=== PATIENT | female | born 1945 | race African-American/Black ===

== ENCOUNTER → 2023-04-17 16:15 | Outpatient (BNVA) | payer MEDICARE, SELFPAY | PROVIDERS: PCP Internal Medicine; Visit Provider Internal Medicine Endocrinology, Diabetes & Metabolism | DX: E21.3 Hyperparathyroidism, unspecified (principal) | CPT/HCPCS: 99202 ==

== ENCOUNTER 2023-10-30 12:22 | Outpatient (REF) | payer MEDICARE, SELFPAY ==
[2023-10-30 14:36] LABS: Parathyroid Hormone Intact 156.3 pg/mL (8.7-77.1)
[2023-10-30 14:50] LABS: Vitamin D 25-OH Total 26.6 ng/mL (>30)
== END 2023-10-30 12:23 | disposition home or self-care (01) ==
LOC: HO.LAB 12:22
PROVIDERS: PCP Internal Medicine; Visit Provider Internal Medicine Endocrinology, Diabetes & Metabolism
DX: E21.3 Hyperparathyroidism, unspecified (principal)
CPT/HCPCS: 36415; 82306; 83970

== ENCOUNTER 2023-11-19 14:33 | Outpatient (AMB) | payer MEDICARE, SELFPAY ==
[2023-11-19 14:35] VITALS: BP 124/86; PULSE 78; BMI 36.7
--- NOTE | 2023-11-19 14:35 | MHC.OFFVIS ---
Intake Vital Signs 11/19/23 14:35 Height 5 ft 8.5 in Weight 244 lb 11.41 oz BMI 36.7 BP 124/86 Blood Pressure Location Lt brachial Position Sitting Pulse 78 Pulse Source Pulse Oximeter Intake Visit Reasons: Hypoparathyroidism-lvm Intake Note: Patient present today for Hypoparathyroidism follow up visit. Publications Inspector Required: No Accompanied by: Spouse Allergies shellfish derived Allergy (Unknown, Verified 11/19/23 14:42) Swelling Medication List - Last Reconciled 11/19/23 by Salomón Torre MD amlodipine 5 mg PO DAILY furosemide 20 mg PO DAILY lisinopril 40 mg PO DAILY metoprolol succinate ER 100 mg PO DAILY HPI HPI Comments History of Present Illness Details 78 YO F with PMHx primary hyperparathyroidism according to primary care for who is seen in consultation at the request of PCP for Hypercalcemia. First noted to have high calcium many yrs .Saw Radha Fam up to 3 yrs ago Not Currently using Calcium supplement . Takes 50,000 IU of Vitamin D daily. Currently Not using HCTZ. Kidney stones: No Osteoporosis: No History of [place] use: No Biotin use: No Family history of high calcium or kidney stones: No Renal imaging: No according to pt DXA: Labs: [facility] Medical History (Updated 04/17/23 @ 16:29 by Salomón Torre MD) Hyperparathyroidism Surgical History History of surgery History of left hip replacement History of right knee joint replacement History of total right hip replacement Family History Mother Diabetes Father Lung cancer Social History Alcohol intake: never Patient Tobacco Use Status: Never used Tobacco Physical Exam Vital Signs: Last Vital Signs Pulse 78 11/19/23 14:35 BP 124/86 11/19/23 14:35 BMI result Body Mass Index 36.7 Assessment & Plan Assessment & Plan (1) Hyperparathyroidism: Code(s): E21.3 - Hyperparathyroidism, unspecified Plan: This 78-year-old white female with a history of primary hyperparathyroidism. She also has concomitant vitamin-D deficiency and was taking 82861 units of ergocalciferol once a week Plan is to start 2000 IU of vitamin D3 per day per Will repeat request 24 hour urine for calcium and creatinine as well serum calcium and creatinine as well as 25 hydroxy vitamin-D in 2 months and DEXA bone density of hip, spine and forearm and renal ultrasound . Based on the above could consider either observing vs sending for parathyroidectomy Orders: Orders Creatinine 2 Months E21.3 - Hyperparathyroidism, unspecified Vitamin D 25-OH Total 2 Months E21.3 - Hyperparathyroidism, unspecified Medications: New cholecalciferol (vitamin D3) 50 mcg PO DAILY 30 caps 5RF Coding Level of Care Code Est Pt Level 3 (84037) Diagnoses Hyperparathyroidism E21.3
== END 2023-11-19 14:57 | disposition home or self-care (01) ==
PROVIDERS: PCP Internal Medicine; Visit Provider Internal Medicine Endocrinology, Diabetes & Metabolism
DX: E21.3 Hyperparathyroidism, unspecified (principal)
CPT/HCPCS: 99213

== ENCOUNTER → 2023-11-19 14:33 | Outpatient (BNVA) | payer MEDICARE, SELFPAY | PROVIDERS: PCP Internal Medicine; Visit Provider Internal Medicine Endocrinology, Diabetes & Metabolism | DX: E21.3 Hyperparathyroidism, unspecified (principal) | CPT/HCPCS: 99212 ==

== ENCOUNTER 2023-11-23 14:00 | Outpatient (REF) | payer MEDICARE, SELFPAY ==
--- NOTE | ~2023-11-23 | US_ITS ---
EXAMINATION: US RETROPERITONEAL LIMITED (RENAL ONLY) CLINICAL INFORMATION: Hyperparathyroidism, unspecified. Rule out nephrolithiasis. COMPARISON: None available. TECHNIQUE: Real-time imaging of the kidneys. FINDINGS: RIGHT KIDNEY: 9.9 x 4.6 x 5.0 cm (SAG x AP x TRV). The kidney is normal in size, contour, and echogenicity. Renal cortical thickness is normal. No renal calculi or hydronephrosis. Benign-appearing mid pole 1.4 cm cyst likely benign renal LEFT KIDNEY: 10.1 x 5.5 x 4.6 cm (SAG x AP x TRV). The kidney is normal in size, contour, and echogenicity. Renal cortical thickness is normal. No calculi or focal parenchymal lesions. No hydronephrosis. US/US renal BI IMPRESSION: No hydronephrosis or nephrolithiasis.
--- NOTE | ~2023-11-23 | MM_ITS ---
EXAMINATION: BONE DENSITOMETRY CLINICAL INDICATION: Hyperparathyroidism. COMPARISON: This is the patient's baseline examination. TECHNIQUE: Using a Dotspin DXA System (software version: 13.1) manufactured by [employer], dual-energy x-ray absorptiometry was performed of the lumbar spine and left forearm radius 33%. Patient with bilateral hip replacements. The images are of good technical quality. Summary results are attached. FINDINGS: AP SPINE L1-L3 (excluding L4): The data of L1-L4 has been changed to exclude the L4 vertebral body, because degenerative sclerosis at this level may cause overestimation of lumbar spine density. BMD 1.155 g/cm2, Z-score -0.2, T-score -0.1, normal. LEFT FOREARM RADIUS 33%: BMD 0.706 g/cm2, Z-score -0.3, T-score -1.9, osteopenia. IDENTIFIED RISK FACTORS: Menopause, hyperparathyroid, secondary osteoporosis. HISTORY OF FRACTURE: None listed. MEDICATIONS: None listed. MM/XR DEXA appendicular skeleton IMPRESSION: 1. DIAGNOSIS: Osteopenia based on the lowest T-score value of -1.9 in the forearm radius 33% applying World Health Organization criteria. 2. 10-YEAR FRACTURE RISK PREDICTION, FRAX: Not performed in this patient without a femoral neck BMD measurement. 3. Treatment Recommendations: NOF guidelines recommend consideration for treatment in postmenopausal women and men age 50 and older presenting with the following: -A hip or vertebral (clinical or morphometric) fracture. -T-score less than or equal to -2.5 at the femoral neck or spine after appropriate evaluation to exclude secondary causes. -Low bone mass at the hip or spine and a 10-year fracture probability by FRAX of greater than or equal to 3% for hip fracture or greater than or equal to 20% for major osteoporotic fracture based on the [place] adapted WHO algorithm. 4. Other Recommendations: All treatment decisions require clinical judgment and consideration of individual patient factors, including patient preferences, comorbidities, previous drug use, risk factors not captured in the FRAX model (e.g. frailty, falls, vitamin D deficiency, increased bone turnover, interval significant decline in bone density) and possible under or overestimation of fracture risk by FRAX. Additional medical evaluation for secondary cause of low bone mineral density may be appropriate. FUTURE SCAN RECOMMENDATION: People with diagnosed cases of osteoporosis or at high risk for fracture should have regular bone mineral density tests. For patients eligible for Medicare, routine testing is allowed once every 2 years. The testing frequency can be increased to one year for patients who have rapidly progressing disease, those who are receiving or discontinuing medical therapy to restore bone mass, or have additional risk factors.
== END 2023-11-23 14:01 | disposition home or self-care (01) ==
LOC: HO.MAMMO 14:00
PROVIDERS: PCP Internal Medicine; Visit Provider Internal Medicine Endocrinology, Diabetes & Metabolism
DX: E21.3 Hyperparathyroidism, unspecified (principal); M81.8 Other osteoporosis without current pathological fracture; Z78.0 Asymptomatic menopausal state
CPT/HCPCS: 76775; 77081

== ENCOUNTER 2024-02-25 11:56 | Outpatient (REF) | payer MEDICARE, SELFPAY ==
[2024-02-25 15:02] LABS: Estimated Glomerular Filt Rate 55
[2024-02-25 15:19] LABS: Vitamin D 25-OH Total 41.7 ng/mL (>30)
== END 2024-02-25 11:57 | disposition home or self-care (01) ==
LOC: HO.LAB 11:56
PROVIDERS: PCP Internal Medicine; Visit Provider Internal Medicine Endocrinology, Diabetes & Metabolism
DX: E21.3 Hyperparathyroidism, unspecified (principal)
CPT/HCPCS: 36415; 82306; 82565

== ENCOUNTER 2024-02-27 14:11 | Outpatient (REF) | payer MEDICARE, SELFPAY ==
[2024-02-27 21:56] LABS: Total Volume 24 Hour Urine 1200 mL
[2024-02-27 22:05] LABS: Creatinine, 24Hr Urine 1.5 G/Day (1.0-2.0); Creatinine, mg/dL 122.02
[2024-02-28 18:19] LABS: Calcium, 24 Hr Urine 239 mg/24 h; Calcium/Creatinine Ratio 155 mg/g creat (30-275); Creatinine 24Hr Urine 1.54 g/24 h (0.50-2.15)
== END 2024-02-27 14:12 | disposition home or self-care (01) ==
LOC: HO.LNP 14:11
PROVIDERS: Visit Provider Internal Medicine Endocrinology, Diabetes & Metabolism
DX: E21.3 Hyperparathyroidism, unspecified (principal)
CPT/HCPCS: 82340; 82570

== ENCOUNTER 2024-03-19 14:54 | Outpatient (AMB) | payer MEDICARE, SELFPAY ==
--- NOTE | 2024-03-19 14:56 | MHC.OFFVIS ---
Vital Signs 03/19/24 14:58 Height 5 ft 8.5 in Weight 241 lb 13.553 oz BMI 36.2 BP 156/90 H Blood Pressure Location Lt brachial Position Sitting Pulse 77 Pulse Source Pulse Oximeter Intake Visit Reasons: hyperparathyroidism Intake Note: Patient present today for Hyperparathyroidism follow up visit. Riffler Tender Required: No Accompanied by: Self / Same As Patient Allergies shellfish derived Allergy (Unknown, Verified 03/19/24 15:02) Swelling HPI Comments Details: 78 YO F with PMHx primary hyperparathyroidism according to primary care for who is seen in consultation at the request of PCP for Hypercalcemia. First noted to have high calcium many yrs .Saw Radha Fam up to 3 yrs ago Not Currently using Calcium supplement . Takes 50,000 IU of Vitamin D daily. Currently Not using HCTZ. Kidney stones: No Osteoporosis: No History of [place] use: No Biotin use: No Family history of high calcium or kidney stones: No Renal imaging: No according to pt DXA: Labs: No kidney PFSH Medical History (Updated 04/17/23 @ 16:29 by Salomón Torre MD) Hyperparathyroidism Surgical History History of surgery History of left hip replacement History of right knee joint replacement History of total right hip replacement Family History Mother Diabetes Father Lung cancer Social History Alcohol intake: never Patient Tobacco Use Status: Never used Tobacco Physical Exam Vital Signs: Last Vital Signs Pulse 77 03/19/24 14:58 BP 156/90 H 03/19/24 14:58 BMI result Body Mass Index 36.2 Assessment & Plan Assessment & Plan (1) Hyperparathyroidism: Code(s): E21.3 - Hyperparathyroidism, unspecified Category: Medical Plan: This 78-year-old white female with a history of primary hyperparathyroidism. She also has concomitant vitamin-D deficiency and was taking 2000 IU/day of vitamin D3 . DEXA bone density did not show any evidence of osteoporosis and renal ultrasound did not show any evidence of kidney stones. Therefore there is no clear indication for parathyroid exploration Plan is to repeat calcium, albumin, PTH, 25 hydroxy vitamin-D. Most likely, we will continue to observe patient has no clear indication for parathyroid surgery Orders: Orders Vitamin D 25-OH Total Today E21.3 - Hyperparathyroidism, unspecified Parathyroid Hormone Intact Today E21.3 - Hyperparathyroidism, unspecified Calcium Today E21.3 - Hyperparathyroidism, unspecified Albumin Level Today E21.3 - Hyperparathyroidism, unspecified Coding Level of Care Code Est Pt Level 3 (82502) Diagnoses Hyperparathyroidism E21.3
[2024-03-19 14:58] VITALS: BP 156/90; PULSE 77; BMI 36.2
== END 2024-03-19 15:55 | disposition home or self-care (01) ==
PROVIDERS: PCP Internal Medicine; Visit Provider Internal Medicine Endocrinology, Diabetes & Metabolism
DX: E21.3 Hyperparathyroidism, unspecified (principal)
CPT/HCPCS: 99213

== ENCOUNTER → 2024-03-19 14:54 | Outpatient (BNVA) | payer MEDICARE, SELFPAY | PROVIDERS: PCP Internal Medicine; Visit Provider Internal Medicine Endocrinology, Diabetes & Metabolism | DX: E21.3 Hyperparathyroidism, unspecified (principal) | CPT/HCPCS: 99212 ==

== ENCOUNTER 2024-04-22 09:50 | Outpatient (REF) | payer MEDICARE, SELFPAY ==
--- NOTE | ~2024-04-22 | MM_ITS ---
EXAMINATION: MM SCREENING DIGITAL BREAST TOMOSYNTHESIS, BILATERAL CLINICAL INFORMATION: Screening. Asymptomatic. COMPARISON: Mammography: There are no prior mammograms for comparison. TECHNIQUE: Digital breast tomosynthesis is performed in both the craniocaudal and mediolateral oblique views along with computer-aided detection (CAD). Synthesized 2D images are generated from the tomosynthesis. FINDINGS: There are scattered areas of fibroglandular density (ACR BI-RADS breast composition Category b). There are no significant masses, abnormal calcifications, or other abnormalities. Scattered, coarse, benign calcifications are present in each breast. MM/MM tomosynthesis screening BI IMPRESSION: No mammographic evidence of malignancy. ASSESSMENT: BI-RADS BI-RADS 2 - Benign Findings RECOMMENDATION: Routine annual mammography screening. 1 year F/U This examination should not preclude the clinical evaluation of a suspicious palpable abnormality. This patient's information was entered into a reminder system with a target due date for their next mammogram.
== END 2024-04-22 09:51 | disposition home or self-care (01) ==
LOC: HO.MAMMO 09:50
PROVIDERS: PCP Internal Medicine; Visit Provider Internal Medicine
DX: Z12.31 Encounter for screening mammogram for malignant neoplasm of breast (principal)
CPT/HCPCS: 77063; 77067

== ENCOUNTER → 2024-04-22 12:30 | Outpatient (BNV) | payer MEDICARE, SELFPAY | PROVIDERS: PCP Internal Medicine; Visit Provider Radiology Diagnostic Radiology | DX: Z12.31 Encounter for screening mammogram for malignant neoplasm of breast (principal) | CPT/HCPCS: 77063; 77067 ==

== ENCOUNTER 2025-04-01 11:33 | Outpatient (AMB) | payer MEDICARE, SELFPAY ==
--- NOTE | 2025-04-01 11:38 | MHC.OFFVIS ---
Vital Signs 04/01/25 11:47 Height 5 ft 8 in Weight 232 lb BMI 35.3 BP 160/80 H Blood Pressure Location Rt brachial Position Sitting Pulse 105 H Intake Visit Reasons: Gallbladder problems Intake Note: Patient referred by pcp Dr. Mixon for Cholelithiasis. Patient c/o: oan and off RUQ pain. Reports normal BM. Denies constipation, diarrhea. Factory Helper Required: No Accompanied by: Self / Same As Patient Allergies shellfish derived Allergy (Unknown, Verified 04/01/25 11:44) Swelling Medication List - Last Reconciled 04/01/25 by Zhen Wilcox MD amlodipine 5 mg PO DAILY aspirin 81 mg PO DAILY cholecalciferol (vitamin D3) 50 mcg PO DAILY lisinopril 40 mg PO DAILY metoprolol succinate ER 100 mg PO DAILY HPI HPI Gallbladder problems: Details: [age] year old female referred for question of gallbladder problems. She says that she went to the ER in [facility] last January,. She says she was having pain on the right flank area that time. She says she was told that she may have gallbladder issues although she does not recall having any imaging workup. She was therefore recommended to see a surgeon She admits to occasional pain in the right flank area. She denies any GI complaints . She has good oral intake. [facility] Medical History Right flank pain Hyperparathyroidism Surgical History History of surgery History of left hip replacement History of right knee joint replacement History of total right hip replacement Family History Mother Diabetes Father Lung cancer Social History Alcohol intake: never Patient Tobacco Use Status: Never used Tobacco Review of Systems Const Denies chills and Denies fever(s) Card Denies chest pain, Denies dyspnea and Reports dyspnea on exertion Resp Denies cough, Denies dyspnea and Reports dyspnea on exertion GI Denies hematochezia and Denies change in bowel habits Denies hematuria Musc Denies back pain and Denies limited range of motion Neuro Denies focal weakness and Denies convulsions Psych Denies depression and Denies mood swings Physical Exam Vital Signs: Last Vital Signs Pulse 105 H 04/01/25 11:47 BP 160/80 H 04/01/25 11:47 BMI result Body Mass Index 35.3 Const Other: Appears morbidly obese General: comfortable and no acute distress Resp Effort & Inspection: normal respiratory effort Cardio Rate: regular rate GI Other: Obese abdomen Palpation (GI): Soft to palpation, not firm and nontender Assessment & Plan Assessment & Plan (1) Right flank pain: Code(s): R10.9 - Unspecified abdominal pain Category: Medical Plan: She was told she may have gallbladder disease. I do not see any imaging studies here in [facility]. Says she does not recall having any imaging studies while she was in at [facility]. I am going to order for a CAT scan of the abdomen with IV contrast. I told her that I will see her again in the office after her CAT scan to review the findings. She otherwise has a very benign exam. She says she understands the plan well and is comfortable with this Orders: Orders Blood Urea Nitrogen Today R10.9 - Unspecified abdominal pain Creatinine Today R10.9 - Unspecified abdominal pain CT abdomen pelvis w IV con Today R10.9 - Unspecified abdominal pain Coding Level of Care Code New Pt Level 3 (64078) Diagnoses Right flank pain R10.9
[2025-04-01 11:47] VITALS: BP 160/80; PULSE 105; BMI 35.3
--- OUTSIDE RECORDS SUMMARY | 2025-04-01 13:18 | XMS_ITS | Patient Health Record ---
Author Organization [facility] Address [address] [place] [address] Care Team Providers Care Accounting Auditor Name Role Phone Oral Gisselle Primary Care Provider Favian Sanchez M.D, M.P.H, Nunu Unavailable Allergies No Known Allergies Results Component Value Reference Range Notes Metanephrines, Pheochromocyt Reviewed date:07/16/2024 02:00:41 PM Interpretation: Performing Lab: Notes/Report: VMA, Random Urine Reviewed date:07/16/2024 02:00:29 PM Interpretation: Performing Lab: Notes/Report: VANILLYLMANDELIC ACID, RANDO M URINE (Not yet reviewed by provider) Interpretation: Performing Lab:EZ, [facility],[address] [facility] [id number] Hailee Khan MD,PhD,TATYANA Notes/Report: VANILLYLMANDELIC ACID, RANDO M URINE 2.3 1.1-4.1 mg/g creat This test was developed and its analytical performance characteristics have been determined by [facility]. It has not been cleared or approved by FDA. This assay has been validated pursuant to the CLIA regulations and is used for clinical purposes. CREATININE, RANDOM URINE 61 20-275 mg/dL METANEPHRINES, FRACT, FREE, LC/MS/MS, PLASMA (Not yet reviewed by provider) Interpretation: Performing Lab:KELLY, [facility] [id number] Hayden Scott, [id number] Milton Covington M.D.,PhD Notes/Report: METANEPHRINE, FREE 64 <=57 pg/mL This test was developed and its analytical performance characteristics have been determined by [email or web address] [place], [place]. It has not been cleared or approved by the U.S. Food and Drug Administration. This assay has been validated pursuant to the CLIA regulations and is used for clinical purposes. NORMETANEPHRINE, FREE 48 <=148 pg/mL This test was developed and its analytical performance characteristics have been determined by [email or web address] [place], [place]. It has not been cleared or approved by the U.S. Food and Drug Administration. This assay has been validated pursuant to the CLIA regulations and is used for clinical purposes. TOTAL, FREE (MN+NMN) 112 <=205 pg/mL Elevations >1- 4-fold upper reference range: significant but not diagnostic, may be due to medications or stress. Suggest running 24 hr urine fractionated metanephrines and/or serum Chromagranin A for confirmation. Reference: (1)Brandy Adorno et al, Plasma Chromogranin A or Urine Fractionated Metanephrines Follow-Up Testing Improves the Diagnostic Accuracy of Plasma Fractionated Metanephrines for Pheochromocytoma. The Journal of Clinical Endocrinology # Metabolism 93(1), 91-95, 2008. This test was developed and its analytical performance characteristics have been determined by [email or web address] [place], [place]. It has not been cleared or approved by the U.S. Food and Drug Administration. This assay has been validated pursuant to the CLIA regulations and is used for clinical purposes. For additional information, please refer to http://education.[employer].com/faq/MetFractFr ee (This link is being provided for informational/educatio informational/educational purposes only.) Elevations >4-fold upper reference range: strongly suggestive of a pheochromocytoma(1). COPY(IES) SENT TO: (Not yet reviewed by provider) Interpretation: Performing Lab: Notes/Report: COPY(IES) SENT TO: [address] [place] [address] HEREDITARY ENDOCRINE CANCER PANEL (Not yet reviewed by provider) Interpretation: Performing Lab:EZ, [email or web address],[address] [address], [place] Hailee Khan MD,PhD,TATYANA Notes/Report: RESULT NEGATIVE NO CLINICALLY SIGNIFICANT VARIANTS IDENTIFIED Comprehensive sequence analysis of the coding regions and flanking sequence of the gene(s) tested (see Methods and Limitations section) was negative for clinically significant variants. Inherent to the assay methodology, not all gross gene rearrangements or variants affecting gene expression or RNA splicing will be detected. This negative result does not rule out clinically significant variants in other genes associated with hereditary susceptibility to cancer, nor does it address risk for other hereditary conditions. Residual risk after this negative test result is influenced by the indication for testing. Cancer screening and prevention efforts should be guided by personal and family history. In some circumstances, additional genetic testing may be appropriate in addition to new testing options relevant for this individual as they become available in the future. Genetic counseling is recommended for any individual undergoing genetic testing. If this individual has one or more relatives who tested positive for a pathogenic or likely pathogenic variant in any of the tested genes, it is strongly recommended that the genetic test report from at least one such relative be provided to [email or web address]. GENE LIST SEE NOTE In total, 12 genes were analyzed as part of this panel: FH, MAX, MEN1, NF1, RET, SDHA, SDHAF2, SDHB, SDHC, SDHD, [id number], and VHL. CLINICAL INTERPRETATION NEGATIVE NO CLINICALLY SIGNIFICANT VARIANTS IDENTIFIED Comprehensive sequence analysis of the coding regions and flanking sequence of the gene(s) tested (see Methods and Limitations section) was negative for clinically significant variants. Inherent to the assay methodology, not all gross gene rearrangements or variants affecting gene expression or RNA splicing will be detected. This negative result does not rule out clinically significant variants in other genes associated with hereditary susceptibility to cancer, nor does it address risk for other hereditary conditions. Residual risk after this negative test result is influenced by the indication for testing. Cancer screening and prevention efforts should be guided by personal and family history. In some circumstances, additional genetic testing may be appropriate in addition to new testing options relevant for this individual as they become available in the future. Genetic counseling is recommended for any individual undergoing genetic testing. If this individual has one or more relatives who tested positive for a pathogenic or likely pathogenic variant in any of the tested genes, it is strongly recommended that the genetic test report from at least one such relative be provided to [email or web address]. REVIEWER SEE NOTE Laboratory testing supervised and results monitored by Cole Bowman, Ph.D., FACMG, HCLD, CGMB. RESOURCES SEE NOTE Visit [employer] for physician information, patient materials, FAQs, and testing resources. Call 8-503-YHSA-INFO ( ) for genetic counseling consultations, pre-authorization services, and help finding patient genetic counseling services. Benign and likely benign variants with no known clinical significance are reported only by request. If a variant is reclassified with clinical implications, [email or web address] will endeavor to contact the ordering provider. Providers may contact [employer] [facility] at [phone] ( ) for assistance with result interpretation, questions about variant classification, or to discuss additional testing. The classification and interpretation of the variant(s) identified reflect the current state of [email or web address]' understanding at the time of this report. Variant classification and interpretation are subject to professional judgment, and may change for a variety of reasons, including but not limited to, updates in classification guidelines and availability of additional scientific and clinical information. This test result should be used in conjunction with the health care provider's clinical evaluation. Inquiry regarding potential changes to the classification of the variant is strongly recommended prior to making any future clinical decision. For questions regarding variant classification updates, please call [email or web address] at [phone] to speak to a genetic counselor or clinical laboratory technician, or visit [email or web address]. For patients who are interested in sharing de-identified genetic and health information to improve understanding of genetics and health, please visit [email or web address]. GenomeConnect is a third constitution party online registry designed by the [employer] ([employer]) and is not affiliated with [email or web address] in any way. This test was developed and its analytical performance characteristics have been determined by [email or web address]. It has not been cleared or approved by FDA. This assay has been validated pursuant to the CLIA regulations and is used for clinical purposes. METHODS AND LIMITATIONS SEE NOTE Methods: In this assay, enzymatically sheared DNA fragments representing the entire coding region and the splice junction sites of the interrogated genes are selectively enriched through exon capture using DNA baits, and then subjected to nucleotide sequence analysis on a massively parallel sequencing platform. Select exons of SDHA are enriched by long-range PCR (LR-PCR) amplification prior to sequencing, to avoid interference from pseudogenes. All genes are examined for single nucleotide variants (SNVs), insertions and deletions (InDels), and copy number variants (CNVs) involving deletions and/or duplications of one or more exons, including those that affect the entire genes. CNVs are assessed by bioinformatic analysis of sequencing reads and, when indicated, confirmed by an orthogonal method. This panel analyzes 12 genes including FH, MAX, MEN1, NF1, RET, SDHA, SDHAF2, SDHB, SDHC, SDHD, FECH718, and VHL. The following NCBI reference transcript sequences were utilized for analysis: FH (NM 057495.3), MAX (NM 377701.4), MEN1 (NM 721332.2), NF1 (NM 633998.3), RET (NM 712078.4), SDHA (NM 021586.3), SDHAF2 (NM 741382.2), SDHB (NM 889813.2), SDHC (NM 067942.3), SDHD (NM 913697.3), XAZQ526 (NM 329671.3), VHL (NM 704481.3). Reference genome: hg19 (build37). Limitations: This assay cannot detect variants affecting unexamined gene regions (e.g. deep intronic), nor variants in other unlisted genes. In addition, the effect of rare or novel variants on mRNA splicing, protein synthesis, and/or protein function may remain unclear. Variants due to mosaicism, somatic variants from pre-malignant or malignant cells, false positive, or false negative results may rarely occur. While this assay detects copy number variants (CNVs) spanning a region of interest (KATIE) 100bp or more in size with a high level of sensitivity, CNV detection in smaller ROIs, which are clinically rare, is reduced. Results should be interpreted in the context of clinical findings, relevant history, and other laboratory data. This assay does not analyze all genes associated with hereditary cancer. In some situations, additional genetic testing may be appropriate. ADDITIONAL INFORMATION SEE NOTE Visit [employer] for physician information, patient materials, FAQs, and testing resources. Call 2-210-FYRF-INFO ( ) for genetic counseling consultations, pre-authorization services, and help finding patient genetic counseling services. Benign and likely benign variants with no known clinical significance are reported only by request. If a variant is reclassified with clinical implications, [email or web address] will endeavor to contact the ordering provider. Providers may contact [employer] [facility] at [phone] ( ) for assistance with result interpretation, questions about variant classification, or to discuss additional testing. The classification and interpretation of the variant(s) identified reflect the current state of [email or web address]' understanding at the time of this report. Variant classification and interpretation are subject to professional judgment, and may change for a variety of reasons, including but not limited to, updates in classification guidelines and availability of additional scientific and clinical information. This test result should be used in conjunction with the health care provider's clinical evaluation. Inquiry regarding potential changes to the classification of the variant is strongly recommended prior to making any future clinical decision. For questions regarding variant classification updates, please call [email or web address] at [phone]) to speak to a genetic counselor or clinical laboratory technician, or visit [email or web address]. For patients who are interested in sharing de-identified genetic and health information to improve understanding of genetics and health, please visit [email or web address]. GenomeConnect is a third constitution party online registry designed by the Clinical Genome [employer] ([employer]) and is not affiliated with [email or web address] in any way. This test was developed and its analytical performance characteristics have been determined by [email or web address]. It has not been cleared or approved by FDA. This assay has been validated pursuant to the CLIA regulations and is used for clinical purposes. COPY(IES) SENT TO: (Not yet reviewed by provider) Interpretation: Performing Lab: Notes/Report: FASTING:NO FASTING: NO COPY(IES) SENT TO: [address] [address] BUN/CREATININE RATIO (Not ye t reviewed by provider) Interpretation: Performing Lab:NL2, [email or web address] [address] [place], [place] [id number] Richy Aguilar Notes/Report: FASTING:NO FASTING: NO UREA NITROGEN (BUN) 17 7-25 mg/dL CREATININE 1.19 0.60-1.00 mg/dL EGFR 47 > OR = 60 mL/min/1.73m2 BUN/CREATININE RATIO 14 6-22 (calc) CT Angiogram Neck with & wit hout contrast Reviewed date:06/05/2024 08:24:40 AM Interpretation: Performing Lab: Notes/Report: Reason For Referral Reason [id number] - Surgery Auth Referral Organization [facility] Referring Provider First Name Nunu Referring Provider Last Name Daniel Referring Provider Speciality Otology, L aryngology, Rhinology Referred Organization [facility] Referred Provider Nunu Sanchez Referred Address [address] [facility] [facility],[place], [place],[address], Referred Provider Specialty Otology, Lar yngology, Rhinology Referral Priority Routine Medications Medication SIG (Take, Route, Frequency, Duration) Notes Start Date End Date Status Vitamin D3 50 MCG (1999) TAKE 1 CAPSU LE BY MOUTH ONCE DAILY Oral for 90 Days Active Metoprolol Succinate ER 50 MG Oral for 30 Days Active Lisinopril 20 MG 1 tablet Orally Twic e a day for 30 days Active Metoprolol Succinate ER 100 MG Oral for 90 Days Active amLODIPine Besylate 5 MG Oral for 90 Days Active Folic Acid 1 MG 1 tablet Orally Once a day Active Aspirin 81 81 MG 1 tablet Orally Once a day Active Clopidogrel Bisulfate 75 MG Oral for 30 Days Active Atorvastatin Calcium 40 MG Oral for 30 Days Active Social History Tobacco Use: Social History Observation Description Date Details (start date - stop date) Never Smoker NA - NA Smoking: Question Answer Notes Are you a : Never Smoker Alcohol Screen Question Answer Notes Did you have a drink containing alcohol in the p ast year? No Vital Signs Blood pressure diastolic 80 mm Hg 08/21/2024 Height 70 in 11/20/2024 Blood pressure systolic 120 mm Hg 08/21/2024 Weight 220 lbs 11/20/2024 BMI 31.56 kg/m2 11/20/2024 Encounters Encounter Location Date Provider Diagnosis [facility] [address] [facility] [address] [place] [address] 06/02/2024 Nunu Sanchez 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 [facility] [address] [facility] [address] [place] [address] 06/12/2024 Nunu Du 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 [facility] [address] [place] [address] 08/06/2024 Nunu Du 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 [facility] [address] [place] [phone] 08/21/2024 Nunu Du 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 [facility] [address] [place] [address] 11/20/2024 Nunu Du 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 [facility] [address] [place] [address] 06/02/2024 Nunu Du 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 [facility] [address] [place] [address] 06/06/2024 Nunu Du [facility] [address] [place] [phone] 07/03/2024 Nunu Du [facility] [address] [place] [phone] 07/29/2024 Nunu Du Assessments Encounter Date Diagnosis (ICD Code) Assessment Notes Treatment Notes Treatment Clinical Notes Section Notes 06/02/2024 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 Had CTA head but no other imaging. Will try to obtain CTA head report from [facility]. She will also need CTA neck if there is a question of a carotid body tumor. Will order, see after. 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 Recommend excision. R/A/B discussed extensively. Will ask vascular surgeon to be available and have them review imaging to see if they want LE duplex pre-op. In addition, will check plasma metanephrines and urine VMA to r/o pheochromocytoma. Patient in agreement with proceeding. Will tentatively schedule. 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 path shows paraganglioma, completely excised. Doing well. Can see me prn. Plan Of Treatment Pending Test Test Name Order Date BUN/CREATININE RATIO 06/02/2024 VANILLYLMANDELIC ACID, RANDOM URINE 05/23 METANEPHRINES, FRACT, FREE, LC/MS/MS, PL ASMA 06/12/2024 COPY(IES) SENT TO: 06/02/2024 COPY(IES) SENT TO: 06/12/2024 HEREDITARY ENDOCRINE CANCER PANEL 2023 Insurance Providers Payer Name Payer Address Payer Phone Subscriber Number Group Number Insured Name Patient Relationship to Insured Coverage Start Date Coverage End Date [facility] 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
== END 2025-04-01 11:55 | disposition home or self-care (01) ==
LOC: HO.HGS 11:34
PROVIDERS: PCP Internal Medicine; Visit Provider Surgery
DX: R10.9 Unspecified abdominal pain (principal)
CPT/HCPCS: 99203

== ENCOUNTER 2025-04-01 11:33 | Outpatient (REF) | payer MEDICARE, SELFPAY ==
[2025-04-01 14:34] LABS: Blood Urea Nitrogen 15 mg/dL (9-16); Estimated Glomerular Filt Rate 53
== END 2025-04-01 11:34 | disposition home or self-care (01) ==
LOC: HO.LAB 11:33
PROVIDERS: PCP Internal Medicine; Visit Provider Surgery
DX: R10.9 Unspecified abdominal pain (principal)
CPT/HCPCS: 36415; 82565; 84520; 99202

== ENCOUNTER 2025-04-28 10:22 | Outpatient (REF) | payer MEDICARE, SELFPAY ==
--- OUTSIDE RECORDS SUMMARY | 2025-04-28 11:14 | XMS_ITS | Clinical Summary ---
Author Organization [facility] [address] [facility] Address [address] [place] [address] Phone Care Team Providers Care Freight Inspector Name Role Phone Gisselle Mixon MD Primary Care Provider [phone] Allergies Active Allergy Reactions Criticality Noted Date Comments Shellfish Containing Products 2024 Medications lisinopril (PRINIVIL,ZESTR IL) 40 mg tablet Take 1 tablet (40 mg total) by mouth. Active metoprolol ospina-hydrochlorot hiaz 100-12.5 mg tablet extended release 24 hr Take by mouth. A ctive aspirin 81 mg EC tablet Take 1 tablet (81 mg total) by mouth 1 (one) time each day. Active atorvastatin (LIPITOR) 40 mg tablet Take 1 tablet (40 mg total) by mouth at bedtime. Active doxycycline (MONODOX) 100 mg capsule Take 1 capsule (100 mg total) by mouth 2 (two) times a day. Take with at least 8 ounces (large glass) of water, do not lie down for 30 minutes after. Administer 2 hours before or after multivitamins, antacids, or other products containing polyvalent cations (i.e., calcium, iron, magnesium, selenium, zinc). Active amLODIPine (NORVASC) 5 mg tablet 0 Refills, Maintenance, 05/18/24 14:21:00 EDT, Partial fill upon patient request if the prescription is for a schedule II opioid drug. 4 Active folic acid (FOLVITE) 1 mg tablet Take 1 tablet (1 mg total) by mouth. 4 Active metoprolol tartrate (LOPRESSOR) 50 mg tablet Take 1 tablet (50 mg total) by mouth. 3 Active cholecalciferol (VITAMIN D-3) 50 mcg (2,000 unit) capsule Take 1 capsule (2,000 Units total) by mouth 1 (one) time each day. Active Active Problems Problem Noted Date Diagnosed Date Class 1 obesity 02/26/2025 Hyperparathyroidism ([facility] V24) 02/26/2025 Hypertension 02/26/2025 Cervical cord compression wi th myelopathy ([facility] V24, [facility] V28) 05/18/2022 Overview (02/20/2025): Last Assessment & Plan: Ms. Flores is here for 1 year follow-up since her C3-4 and C6-7 decompressive laminectomy on 06/08/2022. She feels well, denies neck pain and states that her hands are much better, she has not dropped anything from her hands since surgery. She still feels a little off balance and uses her rollator. She denies any falls. On exam, she has a well-healed posterior cervical incision without tenderness or swelling. Cervical rotation is between 60 and 75 degrees bilaterally, strength is 5/5 to confrontational testing. She is able to rise from the chair pushing up on the armrests, gait is with short spastic steps. She appears safe with her rollator. Review of the AP/lateral and flexion/extension x-rays from today show the laminectomy defects without instability. Ms. Flores has made improvements since her surgery to treat cervical myelopathy. However, her she continues to have a spastic gait which may not improve further. She attended postop PT and has the home exercise program though she is not consistent with it. I encouraged her to restart that but let her know that the vast majority of improvements occur within the first year of surgery so she may be at medical endpoint. She should continue using her rollator. CVA (cerebral vascular accident) ([facility] V24, [facility] V28) 04/2024 Encounters Date Type Department Care Team Description 03/02/2025 10:10 AM EDT Consult Gastroenterology - [address] [facility] [address] [place] [address] Florence Iverson PA Colon cancer screening (Primary Dx); Right upper quadrant abdominal pain 03/02/2025 Telephone Gastroenterology - [place] [address] [facility] [address] [facility] [address] [place] [address] Aster Jean MA 02/04/2025 Telephone Gastroenterology - [address] [facility] [address] [facility] [address] [place] [address] Abhinav Marks MD 01/30/2025 Telephone Gastroenterology - [address] [facility] 299 [facility] [address] [place] [address] Abhinav Marks MD information needed from Last 3 Months Surgical History Surgery Date Site/Laterality Comments OTHER SURGICAL HISTORY 06/08/2022 PROCEDURE: ND LAMINECTOMY W/O FFD > 2 VERT SEG CERVICAL; COMMENT: C3-4, C6-7 laminectomy, Dr. 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 ([facility] V24, [facility] V28) Artificial knee joint present, right Presence of artificial hip joint, right Presence of left artificial hip joint Chronic renal disease Osteoarthritis Family History Medical History Relation Name Comments Colon polyps Sister Colon cancer Neg Hx Relation Name Status Comments Sister Social History Tobacco Use Types Packs/Day Years Used Date Smoking Tobacco: Never Smokeless Tobacco: Never Tobacco Cessation:Counseling Given: Not Answered Alcohol Use Standard Drinks/Week Comments Not Currently 0 (1 standard drink = 0.6 oz pur e alcohol) Comments Unknown Sex and Gender Information Value Date Recorded Sex Assigned at Not on file Legal Sex Female 6:48 PM EST Gender Identity Not on file Sexual Orientation Not on file Obstetrics History Last Filed Vital Signs Vital Sign Reading Time Taken Comments Blood Pressure - - Pulse - - Temperature - - Respiratory Rate - - Oxygen Saturation - - Inhaled Oxygen Concentration - - Weight 108 kg (237 lb) 03/02/2025 10:05 AM EDT Height 172.7 cm (5' 8 ) 03/02/2025 10:05 AM EDT Body Mass Index 36.04 03/02/2025 10:05 AM EDT Plan of Treatment Upcoming Encounters Date Type Department Care Team (Late st Contact Info) Description 05/18/2025 9:00 AM EDT Appointment [facility] [address] [place] [address] Abhinav Marks MD [address] [facility] [address] [place] [address] Health Maintenance Due Date Last Done Comments DTaP,Tdap,and Td Vaccines (1 - Tdap) 1966 Zoster Vaccines (1 of 2) 1966 Pneumococcal Vaccine: 50+ Years (1 of 1 - PCV) 1997 RSV Immunization Adult Patients (1 - 1-dose 75+ series) 2022 Cholesterol Screening (Lipid Panel) 09/23/2022 Depression Screening 09/23/2022 Falls Risk Assessment 09/23/2022 Hepatitis C Screening 09/23/2022 Medicare Annual Wellness Visit 09/23/2022 Social Influencers of Health Screening 09/23/2022 COVID-19 Vaccine ( season) 2024 12/02/2021, 01/26/2021, 01/05/2021 Hypertension/CHF/CAD Annual BMP Blood Test 02/26/2025 Influenza Vaccine (#1) 2025 Osteoporosis Screening (Bone Density Screening) 02/25/2031 02/25/2021, 01/21/2021, 01/06/2019, Additional history exists HIB Vaccines Aged Out No longer eligi ble based on patient's age to complete this topic HPV Vaccines Aged Out No longer eligi ble based on patient's age to complete this topic Hepatitis A Vaccines Aged Out No long er eligible based on patient's age to complete this topic Hepatitis B Vaccines Aged Out No long er eligible based on patient's age to complete this topic IPV Vaccines Aged Out No longer eligi ble based on patient's age to complete this topic MMR Vaccines Aged Out No longer eligi ble based on patient's age to complete this topic Meningococcal ACWY Vaccine Aged Out N o longer eligible based on patient's age to complete this topic Meningococcal B Vaccine Aged Out No l onger eligible based on patient's age to complete this topic RSV Immunization Patients Under 20 months Aged Out No longer eligible based on patient's age to complete this topic Varicella Vaccines Aged Out No longer eligible based on patient's age to complete this topic Procedures Procedure Name Priority Date/Time Associated Diagnosis Comments RUBEN DEXA APPEND SKELETON Routine 02/25/2021 2:57 PM EDT Other specified disorders of bone density and structure, left forearm from Last 3 Months or Most Recently Relevant to Health Maintenance Results * [facility] DEXA APPEND SKELETON (02/25/2021 2:57 PM EDT) Anatomical Region Laterality Modality Mammography 02/25/2021 1:42 PM EDT Narrative 02/25/2021 2:57 PM EDT [facility] Diagnostic Imaging Department [address] [place] [address] Patient: MARKREGINE./Age/Sex: 1945 - 75 - F Unit#: [id number] Location/Status: [facility] CLI Mnemonic[facility] Ordering Physician: RADHA LEAVITT MD [facility] Dexa Append Skeleton - 02/25/21 - [id number] HISTORY: The patient is a 75-year-old postmenopausal female with clinical concern for metabolic bone disease. FINDINGS: Dual energy x-ray absorptiometry of the left forearm is performed. The mean bone mineral density at the distal one third of the left radius is 0.780 gm/cm2 which is 88% of that of young normals and 103% of that of age matched controls. This yields a T-score of -1.2 and a Z-score of 0.2 which is diagnostic of osteopenia. IMPRESSION: Osteopenia. There has been an increase of 2.6% in bone mineral density in the distal one third of left radius since the prior study of 01/06/2019. Code 62735 Dictating Physician: SARAI GAVIN MD Electronically Signed by: SARAI GAVIN MD Dic Date/Time: 02/25/211454 Sign date/Time: 02/25/211456 Procedure Note Sarai Gavin MD - 10/10/2022 [facility] Diagnostic Imaging Department [address] [place] [address] Patient: REGINE FLORES Luzma Rosario./Age/Sex: 1945 - 75 - F Unit#: [id number] [facility] Ordering Physician: RADHA LEAVITT MD [facility] Dexa Append Skeleton - 02/25/21 - 0238 HISTORY: The patient is a 75-year-old postmenopausal female withclinical concern for metabolic bone disease. FINDINGS: Dual energy x-ray absorptiometry of the left forearm isperformed. The mean bone mineral density at the distal one third of the left radiusis 0.780 gm/cm2 which is 88% of that of young normals and 103% of that ofage matched controls. This yields a T-score of -1.2 and a Z-score of 0.2 whichis diagnostic of osteopenia. IMPRESSION: Osteopenia. There has been an increase of 2.6% in bonemineral density in the distal one third of left radius since the prior study of 01/06/2019. Code 06375 Dictating Physician: SARAI GAVIN MD Electronically Signed by: SARAI GAVIN MD Dic Date/Time: 02/25/211454 Sign date/Time: 02/25/211456 Radha Leavitt MD IMG BI PROCEDURES Final Result from Last 3 Months or Most Recently Relevant to Health Maintenance Insurance [employer] MEDICARE Advance Directives Documents on File Type Date Recorded Patient Dulser Expl anation Health Care Decision (hx) 10/11/2021 AD CARROLL DIRECTIVE Health Care Decision (hx) 10/11/2021 AD CARROLL DIRECTIVE Health Care Decision (hx) 10/11/2021 AD CARROLL DIRECTIVE Health Care Decision (hx) 10/11/2021 AD CARROLL DIRECTIVE Health Care Decision (hx) 10/11/2021 AD CARROLL DIRECTIVE Health Care Decision (hx) 10/11/2021 AD CARROLL DIRECTIVE Health Care Decision (hx) 10/11/2021 AD CARROLL DIRECTIVE Health Care Decision (hx) 10/11/2021 AD CARROLL DIRECTIVE Health Care Decision (hx) 10/11/2021 AD CARROLL DIRECTIVE Health Care Decision (hx) 10/11/2021 AD CARROLL DIRECTIVE Health Care Decision (hx) 10/11/2021 AD CARROLL DIRECTIVE Health Care Decision (hx) 10/11/2021 AD CARROLL DIRECTIVE Health Care Decision (hx) 10/11/2021 AD CARROLL DIRECTIVE Health Care Decision (hx) 10/11/2021 AD CARROLL DIRECTIVE Health Care Decision (hx) 10/11/2021 AD CARROLL DIRECTIVE Health Care Decision (hx) 10/11/2021 AD CARROLL DIRECTIVE Health Care Decision (hx) 10/11/2021 AD CARROLL DIRECTIVE Care Teams Freight Inspector Relationship Specialty Start Date End Date Gisselle Mixon MD [address] [place] [address] PCP - General 04/05/15
--- OUTSIDE RECORDS SUMMARY | 2025-04-28 11:14 | XMS_ITS | Patient Health Record ---
Author Organization [facility] Address [address] [place] [address] Care Team Providers Care Filter Press Pumper Name Role Phone Oral Gisselle Primary Care Provider Favian Sanchez M.D, M.P.H, Nunu Unavailable [phone] Allergies No Known Allergies Results Component Value Reference Range Notes HEREDITARY ENDOCRINE CANCER PANEL (Not yet reviewed by provider) Interpretation: Performing Lab:[facility], [facility],[address] [facility] Hailee Khan MD,PhD,TATYANA Notes/Report: RESULT NEGATIVE NO [...] least one such relative be provided to [facility]. GENE LIST SEE NOTE In total, 12 genes were analyzed as part of this panel: FH, MAX, MEN1, NF1, RET, SDHA, SDHAF2, SDHB, SDHC, SDHD, XLBW984, and VHL. CLINICAL INTERPRETATION NEGATIVE NO CLINICALLY [...] least one such relative be provided to [facility]. REVIEWER SEE NOTE Laboratory testing supervised and results monitored by Cole Bowman, Ph.D., [facility], [facility], [facility]. RESOURCES SEE NOTE Visit [employer] for physician information, patient materials, FAQs, and testing resources. Call 9-775-LRKQ-INFO ( ) for genetic counseling consultations, pre-authorization services, and help finding patient genetic counseling services. Benign and likely benign variants with no known clinical significance are reported only by request. If a variant is reclassified with clinical implications, [facility] will endeavor to contact the ordering provider. Providers may contact [facility] at [phone] ( ) for assistance with result interpretation, questions about variant classification, or to discuss additional testing. The classification and interpretation of the variant(s) identified reflect the current state of [facility]' understanding at the time of this report. [...] questions regarding variant classification updates, please call [facility] at [phone]) to speak to a genetic counselor or cytology laboratory manager, or visit [email or web address]. For patients who are interested in sharing de-identified genetic and health information to improve understanding of genetics and health, please visit [email or web address]. AveksaneRockerbox is a third republican online registry designed by the [employer] (ezTaxi) and is not affiliated with [facility] in any way. This test was developed and its analytical performance characteristics have been determined by [facility]. It has not been cleared or approved [...] NF1, RET, SDHA, SDHAF2, SDHB, SDHC, SDHD, LYAX474, and VHL. The following NCBI reference transcript sequences were utilized for analysis: FH (NM 643656.3), MAX (NM 801683.4), MEN1 (NM 929939.2), NF1 (NM 216426.3), RET (NM 149307.4), SDHA (NM 546305.3), SDHAF2 (NM 478457.2), SDHB (NM 937656.2), SDHC (NM 918182.3), SDHD (NM 159708.3), NREN932 (NM 967493.3), VHL (NM 042440.3). Reference genome: hg19 (build37). Limitations: This assay [...] be appropriate. ADDITIONAL INFORMATION SEE NOTE Visit [employer] for physician information, patient materials, FAQs, and testing resources. Call 8-133-PPEP-INFO ( ) for genetic counseling consultations, pre-authorization services, and help finding patient genetic counseling services. Benign and likely benign variants with no known clinical significance are reported only by request. If a variant is reclassified with clinical implications, [facility] will endeavor to contact the ordering provider. Providers may contact [facility] at [phone] ( ) for assistance with result interpretation, questions about variant classification, or to discuss additional testing. The classification and interpretation of the variant(s) identified reflect the current state of [facility]' understanding at the time of this report. [...] questions regarding variant classification updates, please call [facility] at [phone] ([phone]) to speak to a genetic counselor or cytology laboratory manager, or visit [email or web address]. For patients who are interested in sharing de-identified genetic and health information to improve understanding of genetics and health, please visit [email or web address]. GenomeConnect is a third republican online registry designed by the [employer] (ezTaxi) and is not affiliated with [facility] in any way. This test was developed and its analytical performance characteristics have been determined by [facility]. It has not been cleared or approved by FDA. This assay has been validated pursuant to the CLIA regulations and is used for clinical purposes. COPY(IES) SENT TO: (Not yet reviewed by provider) Interpretation: Performing Lab: Notes/Report: COPY(IES) SENT TO: [address] [address] METANEPHRINES, FRACT, FREE, LC/MS/MS, PLASMA (Not yet reviewed by provider) Interpretation: Performing Lab:[facility]/[id number] Hayden Scott, QhtarritgGC[address] Milton Covington M.D.,PhD Notes/Report: METANEPHRINE, FREE 64 <=57 pg/mL This test was developed and its analytical performance characteristics have been determined by [facility] [place], [place]. It has not been cleared or approved by the U.S. Food and Drug Administration. This assay has been validated pursuant to the CLIA regulations and is used for clinical purposes. NORMETANEPHRINE, FREE 48 <=148 pg/mL This test was developed and its analytical performance characteristics have been determined by [facility] [place], [place]. It has not been cleared or [...] analytical performance characteristics have been determined by [facility], [place]. It has not been cleared or approved by the U.S. Food and Drug Administration. This assay has been validated pursuant to the CLIA regulations and is used for clinical purposes. For additional information, please refer to http://education.Yozio/faq/MetFractFr ee (This link is being provided for informational/educatio informational/educational purposes only.) Elevations >4-fold upper reference range: strongly suggestive of a pheochromocytoma(1). VANILLYLMANDELIC ACID, RANDO M URINE (Not yet reviewed by provider) Interpretation: Performing Lab:[facility], [facility],[address] [facility] Hailee Khan MD,PhD,TATYANA Notes/Report: VANILLYLMANDELIC ACID, RANDO M URINE 2.3 1.1-4.1 mg/g creat This test was developed and its analytical performance characteristics have been determined by [facility]. It has not been cleared or approved by FDA. This assay has been validated pursuant to the CLIA regulations and is used for clinical purposes. CREATININE, RANDOM URINE 61 20-275 mg/dL COPY(IES) SENT TO: (Not yet reviewed by provider) Interpretation: Performing Lab: Notes/Report: FASTING:NO FASTING: NO COPY(IES) SENT TO: [address] [address] BUN/CREATININE RATIO (Not ye t reviewed by provider) Interpretation: Performing Lab:NL2, [facility] [address] [place], [place] [address] Richy Aguilar Notes/Report: FASTING:NO FASTING: NO UREA NITROGEN (BUN) 17 7-25 mg/dL CREATININE 1.19 0.60-1.00 mg/dL EGFR 47 > OR = 60 mL/min/1.73m2 BUN/CREATININE RATIO 14 6-22 (calc) VMA, Random Urine Reviewed date:07/16/2024 02:00:29 PM Interpretation: Performing Lab: Notes/Report: Metanephrines, Pheochromocyt Reviewed date:07/16/2024 02:00:41 PM Interpretation: Performing Lab: Notes/Report: CT Angiogram Neck with & wit hout contrast Reviewed date:06/05/2024 08:24:40 AM Interpretation: Performing Lab: Notes/Report: Reason For Referral Reason [id number] - Surgery Auth Referral Organization [facility] Referring Provider First Name Nunu Referring Provider Last Name Daniel Referring Provider Speciality Otology, L aryngology, Rhinology Referred Organization [facility] Referred Provider Nunu Sanchez Referred Address [address] [facility] [facility], [place],[address], Referred Provider Specialty Otology, Lar yngology, Rhinology [...] Date Provider Diagnosis [facility] [address] [facility] [address] [place] [address] 06/02/2024 Nunu Sanchez 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 [facility] [address] [facility] [address] [place] [address] 06/12/2024 Nunu Du 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 [facility] [address] [place] [address] 08/06/2024 Nunu Du 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 [facility] [address] [place] [address] 08/21/2024 Nunu Du 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 [facility] [address] [place] [address] 11/20/2024 Nunu Du 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 [facility] [address] [place] [address] 06/02/2024 Nunu Du 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 [facility] [address] [place] [address] 06/06/2024 Nunu Du [facility] [address] [place] [address] 07/03/2024 Nunu Du [facility] [address] [place] [phone] 07/29/2024 Nunu Du Assessments Encounter Date Diagnosis (ICD Code) Assessment Notes Treatment Notes Treatment Clinical Notes Section Notes 06/02/2024 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 Had CTA head but no other imaging. Will try to obtain CTA head report from [facility]. She will also need CTA neck if [...] Insured Coverage Start Date Coverage End Date [facility] [address] [address] [place] [address] [id number] Regine Carreon Self - patient is the [...]
--- OUTSIDE RECORDS SUMMARY | 2025-04-28 11:15 | XMS_ITS | Patient Health Record ---
Author Organization [employer] [facility] Address [address] [facility] [address] [place] [address] Support Name Relationship Address Phone MAGALY FLORES Guarantor Unknown [phone] Reason For Referral No Information Medications Medication SIG (Take, Route, Frequency, Duration) Notes Start Date End Date Status Lisinopril 40MG 1 ORAL daily; Durati on: -3 Brady-MJ 11/15/2012 Active hydroCHLOROthiazide 25mg 1 ORAL daily; D uration: -3 Brady-MJ 11/15/2012 Active Vitamin D3 1000 IU ORAL daily; Duration: -3 Brady-MJ 2012 Active Metoprolol Succinate 50MG 1 ORAL daily; Duration: -3 Brady-MJ 11/15/2012 Active Problems Problem Type SNOMED Code ICD Code Onset Dates Problem Status W/U Status Risk Notes Problem Benign essential hypertension (3495309) Essential hypertension, benign (401.1) Active confirmed Major Problem Gynecological examination normal (853165301782739) Routine gynecological examination (V72.31) Active confirmed Diag Plan Of Treatment No Information Insurance Providers Payer Name Payer Address Payer Phone Subscriber Number Group Number Insured Name Patient Relationship to Insured Coverage Start Date Coverage End Date AARP Medicare Complete by Emelia esquivel [address] [place] [address] [id number] MAGALY FLORES Self - patient is the insured
== END 2025-04-28 10:23 | disposition home or self-care (01) ==
LOC: HO.MAMMO 10:22
PROVIDERS: PCP Internal Medicine; Visit Provider Internal Medicine
DX: Z12.31 Encounter for screening mammogram for malignant neoplasm of breast (principal)
CPT/HCPCS: 77063; 77067

== ENCOUNTER → 2025-04-28 11:00 | Outpatient (BNV) | payer MEDICARE, SELFPAY | PROVIDERS: PCP Internal Medicine; Visit Provider Radiology Body Imaging | DX: Z12.31 Encounter for screening mammogram for malignant neoplasm of breast (principal) | CPT/HCPCS: 77063; 77067 ==

== ENCOUNTER 2025-05-01 15:02 | Outpatient (REF) | payer MEDICARE, SELFPAY ==
--- NOTE | ~2025-05-01 | CT_ITS ---
EXAMINATION: CT ABDOMEN AND PELVIS WITH CONTRAST CLINICAL INFORMATION: Unspecified abdominal pain COMPARISON: None available. TECHNIQUE: Multidetector volumetric images were obtained from the superior aspect of the liver through the pubic symphysis following administration 100 mL of Omnipaque 350 intravenous contrast. Sagittal and coronal reformatted images were obtained on the technologist's workstation. Oral contrast: No This CT examination was performed using dose optimization techniques as appropriate, variously including the following: *Automated exposure control *Adjustment of mA and/or kV according to patient size (this includes techniques or standardized protocols for targeted exams where dose is matched to indication/reason for exam; i.e. extremities or head) *Use of iterative reconstruction technique DLP: 668 mGy centimeter. FINDINGS: LUNG BASES: No acute airspace disease. LIVER, GALLBLADDER, AND BILIARY TREE: Liver measures 15 cm. There are few at least 2, less than 1.5 cm hypodensities in the right hepatic lobe. The main portal vein, hepatic veins and intrahepatic portion of the IVC are patent. Mild intrahepatic biliary ductal dilatation. Gallbladder is contracted. There is a 3 mm gallbladder wall with questionable trace pericholecystic fluid. Common bile duct measures 4 mm. PANCREAS: No focal lesion. Punctate calcification body of the pancreas. No main pancreatic ductal dilatation. No peripancreatic fluid collection. SPLEEN: 7 cm. No focal lesion. ADRENAL GLANDS: The right adrenal gland demonstrates no nodular lesions. There is a 1.9 cm low density nodule measuring 57 Hounsfield units, left adrenal gland. KIDNEYS AND URETERS: No hydronephrosis. No gross nephrolithiasis. Less than 1.2 cm cyst, right kidney. No gross renal mass. No enhancing lesion in the renal parenchyma. BLADDER: Fluid-filled collapsed. Limited due to beam hardening artifact secondary to the bilateral hip prosthesis. GASTROINTESTINAL TRACT: Appendix is normal. Stool within the large intestine. No intestinal obstruction pattern. No pneumatosis intestinalis. No pneumoperitoneum. No ascites. No fluid collection, peritoneal cavity. ABDOMINAL WALL: Fat-containing umbilical hernia and diastases abdominal rectus muscles. LYMPH NODES: Nonspecific bilateral prominent mesenteric and retroperitoneum. VASCULAR: No aneurysm or dissection abdominal aorta. PELVIC VISCERA: Calcifications in the uterus. OSSEOUS STRUCTURES: Status post bilateral hip prosthesis placement. Multilevel thoracolumbar spondylosis resulting in grade 1 anterolisthesis L4-5 and L5-S1. Trabeculated T12 vertebra. CT/CT abdomen pelvis w IV con IMPRESSION: Acalculous cholecystitis should be considered in the correct clinical setting 1.9 cm nodular lesion left adrenal gland. Hypodensities right hepatic lobe. Statistically may represent cyst versus hemangioma. Bilateral renal cysts. Fat-containing umbilical hernia. Intraosseous hemangioma, T12. Multilevel thoracolumbar spondylosis resulting grade 1 anterolisthesis L4-5 and L5-S1. Findings communicated to the requesting physician Dr. Zhen Wilcox on May 01, 2025 at 3:36 PM Fleischner guidelines were followed. Electronically signed by: Aldo Skelton MD 05/01/2025 03:44 PM EDT
--- OUTSIDE RECORDS SUMMARY | 2025-05-01 15:07 | XMS_ITS | Patient Health Record ---
Author Organization [facility] Address [address] [address] [place] [address] Support Name Relationship Address Phone MAGALY FLORES Guarantor Unknown [phone] Reason For Referral No Information Medications Medication [...] Status Risk Notes Problem Benign essential hypertension (4380302) Essential hypertension, benign (401.1) Active confirmed Major Problem Routine gynecological examination (V72.31) Active confirmed Diag Plan Of Treatment No Information Insurance Providers Payer Name Payer Address Payer Phone Subscriber Number Group Number Insured Name Patient Relationship to Insured Coverage Start Date Coverage End Date [facility] Medicare Complete by Emelia esquivel [address] [place] [address] [id number] MAGALY FLORES Self - patient is the insured
--- OUTSIDE RECORDS SUMMARY | 2025-05-01 15:07 | XMS_ITS | Clinical Summary ---
Author Organization [facility] [address] [facility] Address [address] [place] [address] Phone Care Team Providers Care Wood Shingle Roofer Name Role Phone Gisselle Mixon MD Primary Care Provider [phone] Allergies Active Allergy Reactions Criticality Noted Date [...] Diagnosed Date Class 1 obesity 02/26/2025 Hyperparathyroidism ([facility] V24) 02/26/2025 Hypertension 02/26/2025 Cervical cord compression wi th myelopathy ([facility] V24, [facility] V28) 05/18/2022 Overview (02/20/2025): Last Assessment & [...] using her rollator. CVA (cerebral vascular accident) ([facility] V24, C [facility] V28) 04/2024 Encounters Date Type Department Care Team Description 03/02/2025 10:10 AM EDT Consult Gastroenterology - [address] [place] [address] [facility] [place] [address] Florence Iverson PA Colon cancer screening (Primary Dx); Right upper quadrant abdominal pain 03/02/2025 Telephone Gastroenterology - [place] [address] [facility] [address] [place] [address] Aster Jean MA 02/04/2025 Telephone Gastroenterology - [address] [facility] [address] [place] [address] Abhinav Marks MD 01/30/2025 Telephone Gastroenterology - [address] [facility] [address] [facility] [address] [place] [address] Abhinav Marks MD information needed from Last 3 Months Surgical History Surgery Date Site/Laterality Comments OTHER SURGICAL HISTORY 06/08/2022 PROCEDURE: CO LAMINECTOMY W/O FFD > 2 VERT SEG CERVICAL; COMMENT: C3-4, C6-7 laminectomy, Dr. Coombs TOTAL HIP ARTHROPLASTY Bilateral TOTAL KNEE ARTHROPLASTY Right Medical History Medical History Date Comments Hyperparathyroidism, primary (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 V24, [facility] V28) Artificial knee joint present, right Presence [...] Info) Description 05/18/2025 9:00 AM EDT Appointment [facility] [address] [place] [address] Abhinav Marks MD [address] [place] [address] Health Maintenance Due Date Last Done Comments [...] Recently Relevant to Health Maintenance Results * [facility] DEXA APPEND SKELETON (02/25/2021 2:57 PM EDT) Anatomical Region Laterality Modality Mammography 02/25/2021 1:42 PM EDT Narrative 02/25/2021 2:57 PM EDT [facility] Diagnostic Imaging Department [address] [place] [address] Patient: MARKREGINE./Age/Sex: 1945 - 75 - F Unit#: [id number] Location/Status: [facility] CLI Mnemonic/Ordering Site[facility] Ordering Physician: RADHA LEAVITT MD [facility] Dexa Append Skeleton - 02/25/21 - 8983 HISTORY: The patient is a 75-year-old postmenopausal [...] since the prior study of 01/06/2019. Code 36128 Dictating Physician: SARAI GAVIN MD Electronically Signed by: SARAI GAVIN MD Dic Date/Time: 02/25/211454 Sign date/Time: 02/25/211456 Procedure Note Sarai Gavin MD - 10/10/2022 [facility] Diagnostic Imaging Department [address] [place] [address] Patient: REGINE FLORES Luzma Rosario./Age/Sex: 1945 - 75 - F Unit#: [id number] [facility]ing [facility] Ordering Physician: RADHA LEAVITT MD [place] Dexa Append Skeleton - 02/25/21 - 4942 HISTORY: The patient is a 75-year-old postmenopausal [...] since the prior study of 01/06/2019. 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
--- OUTSIDE RECORDS SUMMARY | 2025-05-01 15:07 | XMS_ITS | Patient Health Record ---
Author Organization [facility] Address [address] [place] [address] Care Team Providers Care Outpatient Admitting Clerk Name Role Phone Gisselle Mixon Primary Care Provider Favian Sanchez M.D, M.P.H, Nunu Unavailable Allergies No Known Allergies Results Component Value Reference Range Notes CT Angiogram Neck with & wit hout contrast Reviewed date:06/05/2024 08:24:40 AM Interpretation: Performing Lab: Notes/Report: BUN/CREATININE RATIO (Not ye t reviewed by provider) Interpretation: Performing Lab:NL2, [facility] [address] [place], [place] [address] Richy Aguilar Notes/Report: FASTING:NO FASTING: NO UREA NITROGEN (BUN) 17 7-25 mg/dL CREATININE 1.19 0.60-1.00 mg/dL EGFR 47 > OR = 60 mL/min/1.73m2 BUN/CREATININE RATIO 14 6-22 (calc) HEREDITARY ENDOCRINE CANCER PANEL (Not yet reviewed by provider) Interpretation: Performing Lab:EZ, [facility]/Tariq [facility],[address] [address] [facility] [id number] Hailee Khan MD,PhD,TATYANA Notes/Report: RESULT NEGATIVE NO [...] least one such relative be provided to [employer]. GENE LIST SEE NOTE In total, 12 genes were analyzed as part of this panel: FH, MAX, MEN1, NF1, RET, SDHA, SDHAF2, SDHB, SDHC, SDHD, ASMQ079, and VHL. CLINICAL INTERPRETATION NEGATIVE NO CLINICALLY [...] least one such relative be provided to [employer]. REVIEWER SEE NOTE Laboratory testing supervised and results monitored by Cole Bowman, Ph.D., FACMG, HCLD, MB. RESOURCES SEE NOTE Visit [facility] for physician information, patient materials, FAQs, and testing resources. Call [phone] ( ) for genetic counseling consultations, pre-authorization services, and help finding patient genetic counseling services. Benign and likely benign variants with no known clinical significance are reported only by request. If a variant is reclassified with clinical implications, [employer] will endeavor to contact the ordering provider. Providers may contact [facility] at [phone] ( ) for assistance with result interpretation, questions about variant classification, or to discuss additional testing. The classification and interpretation of the variant(s) identified reflect the current state of [employer]' understanding at the time of this report. [...] questions regarding variant classification updates, please call [employer] at [phone]) to speak to a genetic counselor or physical laboratory assistant, or visit [email or web address] [email or web address]. For patients who are interested in sharing de-identified genetic and health information to improve understanding of genetics and health, please visit [email or web address]. GenomeConnect is a third libertarian online registry designed by the Clinical Genome Resource (ClinGen) and is not affiliated with [employer] in any way. This test was developed and its analytical performance characteristics have been determined by [employer]. It has not been cleared or approved [...] NF1, RET, SDHA, SDHAF2, SDHB, SDHC, SDHD, NBTC324, and VHL. The following NCBI reference transcript sequences were utilized for analysis: FH (NM 610467.3), MAX (NM 407699.4), MEN1 (NM 198576.2), NF1 (NM 963632.3), RET (NM 728508.4), SDHA (NM 983136.3), SDHAF2 (NM 959379.2), SDHB (NM 268357.2), SDHC (NM 138597.3), SDHD (NM 842337.3), SWKR340 (NM 651166.3), VHL (NM 561000.3). Reference genome: hg19 (build37). Limitations: This assay [...] be appropriate. ADDITIONAL INFORMATION SEE NOTE Visit [facility] for physician information, patient materials, FAQs, and testing resources. Call [phone]-INFO ( ) for genetic counseling consultations, pre-authorization services, and help finding patient genetic counseling services. Benign and likely benign variants with no known clinical significance are reported only by request. If a variant is reclassified with clinical implications, [employer] will endeavor to contact the ordering provider. Providers may contact [facility] at [phone] ( ) for assistance with result interpretation, questions about variant classification, or to discuss additional testing. The classification and interpretation of the variant(s) identified reflect the current state of [employer]' understanding at the time of this report. [...] questions regarding variant classification updates, please call [employer] at [employer] ([phone]) to speak to a genetic counselor or physical laboratory assistant, or visit [email or web address].MembraneX [email or web address]. For patients who are interested in sharing de-identified genetic and health information to improve understanding of genetics and health, please visit [email or web address] Haus Music [email or web address]. GenomeSmash Haus Music GroupneUMicIt is a third libertarian online registry designed by the Clinical Genome Resource (BIMA) and is not affiliated with [employer] in any way. This test was developed and its analytical performance characteristics have been determined by [employer]. It has not been cleared or approved by FDA. This assay has been validated pursuant to the CLIA regulations and is used for clinical purposes. COPY(IES) SENT TO: (Not yet reviewed by provider) Interpretation: Performing Lab: Notes/Report: COPY(IES) SENT TO: [address] [address] METANEPHRINES, FRACT, FREE, LC/MS/MS, PLASMA (Not yet reviewed by provider) Interpretation: Performing Lab:Arsenio MENDOZA/[facility] [id number] Hayden Scott, [id number] Milton Covington M.D.,PhD Notes/Report: METANEPHRINE, FREE 64 <=57 pg/mL This test was developed and its analytical performance characteristics have been determined by [employer] [place], [place]. It has not been cleared or approved by the U.S. Food and Drug Administration. This assay has been validated pursuant to the CLIA regulations and is used for clinical purposes. NORMETANEPHRINE, FREE 48 <=148 pg/mL This test was developed and its analytical performance characteristics have been determined by [employer] [place]. It has not been cleared or [...] analytical performance characteristics have been determined by [employer] [place]. It has not been cleared or approved by the U.S. Food and Drug Administration. This assay has been validated pursuant to the CLIA regulations and is used for clinical purposes. For additional information, please refer to http://education.Mosso.FortaTrust/faq/MetFractFr ee (This link is being provided for informational/educatio informational/educational purposes only.) Elevations >4-fold upper reference range: strongly suggestive of a pheochromocytoma(1). VANILLYLMANDELIC ACID, RANDO M URINE (Not yet reviewed by provider) Interpretation: Performing Lab:EZ, [facility],[address] [facility] Hailee Khan MD,PhD,TATYANA Notes/Report: VANILLYLMANDELIC ACID, RANDO M URINE 2.3 1.1-4.1 mg/g creat This test was developed and its analytical performance characteristics have been determined by [employer]. It has not been cleared or approved by FDA. This assay has been validated pursuant to the CLIA regulations and is used for clinical purposes. CREATININE, RANDOM URINE 61 20-275 mg/dL COPY(IES) SENT TO: (Not yet reviewed by provider) Interpretation: Performing Lab: Notes/Report: FASTING:NO FASTING: NO COPY(IES) SENT TO: [address] [place] [address] [facility], Random Urine Reviewed date:07/16/2024 02:00:29 PM Interpretation: Performing Lab: Notes/Report: Metanephrines, Pheochromocyt Reviewed date:07/16/2024 02:00:41 PM Interpretation: Performing Lab: Notes/Report: Reason For Referral Reason [id number] - Surgery Auth Referral Organization [facility] Referring Provider First Name Nunu Referring Provider Last Name Daniel Referring Provider Speciality Otology, L aryngology, Rhinology Referred Organization [facility] Referred Provider Nunu Sanchez Referred Address [address] [facility], [place],[address], Referred Provider Specialty Otology, Lar yngology, Rhinology [...] Diagnosis [facility] [address] [facility] [address] [place] [address] 06/02/2024 Nunu Sanchez 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 [facility] [address] [place] [address] 06/12/2024 Nunu Du 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 [facility] [address] [place] [address] 08/06/2024 Nunu Du 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 [facility] [address] [place] [address] 08/21/2024 Nunu Du 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 [facility] [address] [place] [address] 11/20/2024 Nunu Du 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 [facility] [address] [place] [address] 06/02/2024 Nunu Du 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 Had CTA head but no other imaging. Will try to obtain CTA head report from [facility]. She will also need CTA neck if [...] Insured Coverage Start Date Coverage End Date [facility] [address] [address] [place] [address] [phone] [id number] Regine Carreon Self - patient is the [...]
[2025-05-01] MEDS: iohexoL 350 MG/ML 100 ML INFUS..BTL IV (15:26)
== END 2025-05-01 15:03 | disposition home or self-care (01) ==
LOC: HO.CT 15:02
PROVIDERS: PCP Internal Medicine; Visit Provider Surgery
DX: R10.9 Unspecified abdominal pain (principal)
CPT/HCPCS: 74177; Q9967

== ENCOUNTER → 2025-05-01 15:04 | Outpatient (BNV) | payer MEDICARE, SELFPAY | PROVIDERS: PCP Internal Medicine; Visit Provider Radiology Diagnostic Radiology | DX: R93.2 Abnormal findings on diagnostic imaging of liver and biliary tract (principal); E27.9 Disorder of adrenal gland, unspecified; N28.1 Cyst of kidney, acquired; K42.9 Umbilical hernia without obstruction or gangrene; D18.09 Hemangioma of other sites; M47.895 Other spondylosis, thoracolumbar region | CPT/HCPCS: 74177 ==

== ENCOUNTER 2025-05-27 14:06 | Outpatient (AMB) | payer MEDICARE, SELFPAY ==
--- NOTE | 2025-05-27 14:10 | A.OFFVIS_ITS ---
Vital Signs 05/27/25 14:17 Height 5 ft 8 in Weight 228 lb BMI 34.7 BP 159/86 H Blood Pressure Location Rt brachial Position Sitting Pulse 107 H Intake Visit Reasons: s/p CT 05/01/25 Intake Note: Patient here to discuss abdomen CT dated 05-01-2025. Patient c/o: rt lower abdominal pain. Taking tylenol as needed. 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 She actually stated that she denied any right upper quadrant pain. I had sent her for a CAT scan as she was sent for question of gallbladder disease. She says she does not have any GI complaints. She says that again that her pain is mostly on the chest wall on the right flank area as well as posteriorly. She denies any urinary complaints. [facility] Right flank pain Hyperparathyroidism Surgical History History of surgery History of left hip replacement History of right knee joint replacement History of total right hip replacement Family History Mother Diabetes Father Lung cancer Social History Alcohol intake: never Patient Tobacco Use Status: Never used Tobacco Review of Systems Const Denies chills and Denies fever(s) GI Denies abdominal pain Denies difficulty voiding Musc Details: Poor balance Reports abnormal gait Neuro Details: Poor balance Reports abnormal gait Physical Exam Vital Signs: Last Vital Signs Pulse 107 H 05/27/25 14:17 BP 159/86 H 05/27/25 14:17 BMI result Body Mass Index 34.7 Const Other: Morbidly obese, comfortable, using a walker Chest Other: Mild tenderness on the lower most ribs on the right side posteriorly as well as laterally Resp Effort & Inspection: normal respiratory effort Cardio Rate: regular rate GI Other: No Bains's sign Palpation (GI): Soft to palpation, not firm, nontender and no guarding Assessment & Plan Assessment & Plan (1) Right flank pain: Code(s): R10.9 - Unspecified abdominal pain Category: Medical Plan: I have reviewed her CAT scan and the gallbladder was described as contracted with some thickening of the wall. The thickening is likely because of the contraction of the gallbladder itself. I do not see any inflammatory changes Her tenderness and pain are on the lower most ribs on the right side. This is more suggestive of pain with costochondritis. I have suggested to her to try taking ibuprofen. I told her that I would not proceed with cholecystectomy at this time. She seems to understand the plan and is comfortable with this. I did tell her that if she has questions or concerns down the line says she starts having right upper quadrant pain, she is welcome to come back to the office to be re- evaluated. Medications: New ibuprofen 400 mg PO TID PRN 20 tabs 2RF pain Coding Level of Care Code Est Pt Level 3 (00767) Diagnoses Right flank pain R10.9
[2025-05-27 14:17] VITALS: BP 159/86; PULSE 107; BMI 34.7
--- OUTSIDE RECORDS SUMMARY | 2025-05-27 14:40 | XMS_ITS | Patient Health Record ---
Author Organization [facility] Address [address] [facility] [address] [place] [address] Support Name Relationship Address Phone MAGALY FLORES Guarantor Unknown [phone] Reason For Referral No Information Medications Medication [...] Status Risk Notes Problem Benign essential hypertension (4589746) Essential hypertension, benign (401.1) Active confirmed Major Problem Routine gynecological examination (V72.31) Active confirmed Diag Plan Of Treatment No Information Insurance Providers Payer Name Payer Address Payer Phone Subscriber Number Group Number Insured Name Patient Relationship to Insured Coverage Start Date Coverage End Date AAR Medicare Complete by Emelia esquivel [address] [place] [address] [id number] MAGALY FLORES Self - patient is the insured
--- OUTSIDE RECORDS SUMMARY | 2025-05-27 14:40 | XMS_ITS | Clinical Summary ---
Author Organization [facility] [address] [facility] Address [address] [place] [address] Phone Care Team Providers Care Operating Room Surgical Technologist Name Role Phone Gisselle Mixon MD Primary Care Provider [phone] Allergies Active Allergy Reactions Criticality Noted Date [...] is for a schedule II opioid drug. Active folic acid (FOLVITE) 1 mg tablet Take 1 tablet (1 mg total) by mouth. 4 Active metoprolol tartrate (LOPRESSOR) 50 mg tablet Take 1 tablet (50 mg total) by mouth. 3 Active cholecalciferol (VITAMIN D-3) 50 mcg (2,000 unit) capsule Take 1 capsule (2,000 Units total) by mouth 1 (one) time each day. 5 Active bisacodyL (DULCOLAX) 5 mg EC tablet Take 2 tablets by mouth right before beginning bowel prep. See instructions provided by the office 2 tablet 5 Active polyethylene glycol (Golytely) 236-22.74-6.74 -5.86 gram solution Take 4L by mouth once for one dose. May substitue any PEG. Starting at 2PM the day before your procedure drink 1 8oz glasses at your own pace until you complete half of the gallon. Finish 2nd half of the gallon at 8PM. 4000 mL 5 Active Active Problems Problem Noted Date Diagnosed Date Class 1 obesity 02/26/2025 Hyperparathyroidism ([facility] V24) 02/26/2025 Hypertension 02/26/2025 Cervical cord compression wi th myelopathy ([facility] V24, [facility] V28) 05/18/2022 Overview (02/20/2025): Last Assessment [...] using her rollator. CVA (cerebral vascular accident) (CMS/HCC V24, C MS/HCC V28) 04/2024 Encounters Date Type Department Care Team Description 05/18/2025 9:29 AM EDT Anesthesia Event [facility] [address] [place] [phone] Mike Terry DO 05/18/2025 7:47 AM EDT - 05/18/2025 11:59 PM EDT Hospital Encounter [facility] [address] [place] [phone] Abhinav Marks MD Walsh, Michael, DO Couture, Alison, CRNA History of colon polyps Discharge Disposition: Home or Self Care 03/02/2025 10:10 AM EDT Consult Gastroenterology - 299 [facility] 299 [facility] [address] [place] [phone] Florence Iverson PA Colon cancer screening (Primary Dx); Right upper quadrant abdominal pain 03/02/2025 Telephone Gastroenterology - [place] [address] [facility] 175 [facility] [address] [place] [address] Aster Jean MA from Last 3 Months Surgical History Surgery Date Site/Laterality Comments OTHER SURGICAL HISTORY 06/08/2022 PROCEDURE: AR LAMINECTOMY W/O FFD > 2 VERT SEG CERVICAL; COMMENT: C3-4, C6-7 laminectomy, Dr. 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 (CMS/HCC V24, CMS/[facility] V28) Artificial knee joint present, right Presence of artificial hip joint, right Presence of left artificial hip joint Chronic renal disease Osteoarthritis Hypertension Hyperlipidemia Family History Medical History Relation Name Comments Colon polyps Sister Colon cancer Neg Hx Relation Name Status Comments Sister Social History Tobacco Use Types Packs/Day Years Used Date Smoking Tobacco: Never Smokeless Tobacco: Never Tobacco Cessation:Counseling Given: Not Answered Alcohol Use Standard Drinks/Week Comments Not Currently 0 (1 standard drink = 0.6 oz pur e alcohol) Interpersonal Safety Answer Date Record ed Physical Abuse 05/18/2025 Verbal Abuse 05/18/2025 Comments No Sex and Gender Information Value Date Recorded Sex Assigned at Female 05/18/2025 7:45 AM EDT Legal Sex Female 6:48 PM EST Gender Identity Female 05/18/2025 7:45 AM EDT Sexual Orientation Not on file Obstetrics History Last Filed Vital Signs Vital Sign Reading Time Taken Comments Blood Pressure 141/91 05/18/2025 10:13 AM EDT Pulse 87 05/18/2025 10:13 AM EDT Temperature 36.4 C (97.6 F) 05/18/2025 9:53 AM EDT Respiratory Rate 11 05/18/2025 10:13 AM EDT Oxygen Saturation 97% 05/18/2025 10:13 AM EDT Inhaled Oxygen Concentration - - Weight 108 kg (237 lb) 03/02/2025 10:05 AM EDT Height 172.7 cm (5' 8 ) 03/02/2025 10:05 AM EDT Body Mass Index 36.04 03/02/2025 10:05 AM EDT Plan of Treatment Health Maintenance Due Date Last Done Comments DTaP,Tdap,and Td Vaccines (1 - Tdap) 1966 Zoster Vaccines (1 of 2) 1966 Pneumococcal Vaccine: 50+ Years (1 of 1 - PCV) 1997 RSV Immunization Adult Patients (1 - 1-dose 75+ series) 2022 Cholesterol Screening (Lipid Panel) 09/23/2022 Hepatitis C Screening 09/23/2022 Medicare Annual Wellness Visit 09/23/2022 Social Influencers of Health Screening 09/23/2022 COVID-19 Vaccine ( season) 2024 12/02/2021, 01/26/2021, 01/05/2021 Depression Screening 10/22/2024 Hypertension/CHF/CAD Annual BMP Blood Test 02/26/2025 Influenza Vaccine (#1) 2025 Falls Risk Assessment 05/18/2026 05/18/2025 Osteoporosis Screening (Bone Density Screening) 02/25/2031 02/25/2021, 01/21/2021, 01/06/2019, Additional history exists Colorectal Cancer Screening: Colonoscopy Discontinued 05/18/2025 HIB Vaccines Aged Out No longer eligi [...] Procedure Name Priority Date/Time Associated Diagnosis Comments COLONOSCOPY Routine 05/18/2025 9:52 AM EDT History of colon polyps RUBEN DEXA APPEND SKELETON Routine 02/25/2021 2:57 PM EDT Other specified disorders of bone density and structure, left forearm from Last 3 Months or Most Recently Relevant to Health Maintenance Results * COLONOSCOPY Anesthesia - MAC; [facility] END[facility]COPY (05/18/2025 9:52 AM EDT) Anatomical Region Laterality Modality Endoscopy 05/18/2025 9:26 AM EDT Impressions 05/18/2025 9:54 AM EDT - The entire examined colon is normal on direct and retroflexion views. - No specimens collected. Recommendation: - Repeat colonoscopy is not recommended due to current age (66 years or older). Narrative 05/18/2025 9:[address] [facility] GI Patient Name: Regine Flores Procedure Date: 05/18/2025 9:26 AM Date of : 1945 Age: 79 Room: ROOM 15 Gender: Female Note Status: Finalized Attending MD: Abhinav Marks MD, Procedure Date No Time: 05/18/2025 Procedure: Colonoscopy Indications: Screening for colorectal malignant neoplasm Providers: Abhinav Marks MD Referring MD: Abhinav Marks MD Medicines: Propofol per Anesthesia Complications: No immediate complications. Estimated Blood Loss: Estimated blood loss: none. Procedure: Pre-Anesthesia Assessment: - ASA Grade Assessment: II - A patient with mild systemic disease. After I obtained informed consent, the scope was passed under direct vision. Throughout the procedure, the patient's blood pressure, pulse, and oxygen saturations were monitored continuously.The Colonoscope was introduced through the anus and advanced to the cecum, identified by appendiceal orifice and ileocecal valve. The colonoscopy was performed without difficulty. The patient tolerated the procedure well. The quality of the bowel preparation was good. Findings: The perianal and digital rectal examinations were normal. The entire examined colon appeared normal on direct and retroflexion views. Procedure Code(s): --- Professional --- G0121, Colorectal cancer screening; colonoscopy on individual not meeting criteria for high risk Diagnosis Code(s): --- Professional --- Z12.11, Encounter for screening for malignant neoplasm of colon CPT copyright 2020 [employer]. All rights reserved. The codes documented in this report are preliminary and upon pharmacy informaticist review may be revised to meet current compliance requirements. Abhinav Marks MD 05/18/2025 9:54:00 AM This report has been signed electronically.Abhinav Marks MD Number of Addenda: 0 Note Initiated On: 05/18/2025 9:26 AM Scope In: Scope Out: Endoscopy Department at [facility] - [address] [place] [phone] Procedure Note Abhinav Marks MD - 05/18/2025 [facility] GI Patient Name: Regine Flores Procedure Date: 05/18/2025 9:26 AM Date of : 1945 Age: 79 Room: ROOM 15 Gender: Female Note Status: Finalized Attending MD: Abhinav Marks MD, Procedure Date No Time: 05/18/2025 Procedure: Colonoscopy Indications: Screening for colorectal malignant neoplasm Providers: Abhinav Marks MD Referring MD: Abhinav Marks MD Medicines: Propofol per Anesthesia Complications: No immediate complications. Estimated Blood Loss: Estimated blood loss: none. Procedure: Pre-Anesthesia Assessment: - ASA Grade Assessment: II - A patient with mild systemic disease. After I obtained informed consent, the scope was passed under direct vision. Throughout theprocedure, the patient's blood pressure, pulse, and oxygen saturations were monitored continuously.The Colonoscope was introduced through the anus and advanced to the cecum, identified by appendiceal orifice and ileocecal valve. The colonoscopy was performed without difficulty. The patient tolerated the procedure well. The quality of the bowel preparation was good. Findings: The perianal and digital rectal examinations were normal. The entire examined colon appeared normal on direct and retroflexion views. Procedure Code(s): --- Professional --- G0121, Colorectal cancer screening; colonoscopy on individual not meeting criteria for high risk Diagnosis Code(s): --- Professional --- Z12.11, Encounter for screening for malignantneoplasm of colon CPT copyright 2020 [employer]. All rights reserved. The codes documented in this report are preliminary and upon pharmacy informaticist reviewmay be revised to meet current compliance requirements. Abhinav Marks MD 05/18/2025 9:54:00 AM This report has been signed electronically.Abhinav Marks MD Number of Addenda: 0 Note Initiated On: 05/18/2025 9:26 AM Scope In: Scope Out: Endoscopy Department at [facility] - [address] [place] [phone] IMPRESSION: - The entire examined colon is normal on direct and retroflexion views. - No specimens collected. Recommendation: - Repeat colonoscopy is not recommended due tocurrent age (66 years or older). us Abhinav Marks MD GI~PROCEDURE ORDERABLES Fin al Result * RUBEN DEXA APPEND SKELETON (02/25/2021 2:57 PM EDT) Anatomical Region Laterality Modality Mammography 02/25/2021 1:42 PM EDT Narrative 02/25/2021 2:[address] [facility] Diagnostic Imaging Department [address] [place] [address] Patient: REGINE FLORES Luzma ZepedaB./Age/Sex: 1945 - 75 - F Unit#: [id number] Location/Status: SPDIMAM/REG CLI Mnemonic/[facility] Ordering Physician: RADHA LEAVITT MD Ruben Dexa Append Skeleton - 02/25/211427 HISTORY: The patient is a 75-year-old postmenopausal [...] since the prior study of 01/06/2019. Code 31231 Dictating Physician: SARAI GAVIN MD Electronically Signed by: SARAI GAVIN MD Dic Date/Time: 02/25/211454 Sign date/Time: 02/25/211456 Procedure Note Sarai Gavin MD - 10/10/2022 [facility] Diagnostic Imaging Department [address] [place] [address] Patient: REGINE FLORES J /Age/Sex: 1945 - 75 - F Unit#: [id number] Location/Status: SPDIMAM/REG CLI Mnemonic/[facility] Ordering Physician: RADHA LEAVITT MD Ruben Dexa Append Skeleton - 02/25/21 - 9263 HISTORY: The patient is a 75-year-old postmenopausal [...] since the prior study of 01/06/2019. Code 68940 Dictating Physician: SARAI GAVIN MD Electronically Signed by: SARAI GAVIN MD Dic Date/Time: 02/25/21 145 Sign date/Time: 02/25/211456 Radha Leavitt MD IMG BI PROCEDURES Final Result from Last 3 Months or Most Recently Relevant to Health Maintenance Insurance [employer] MEDICARE Advance Directives Documents on File Type Date Recorded Patient [employer]orer [employer] Expl anation Health Care Decision (hx) 10/11/2021 [...] (hx) 10/11/2021 AD CARROLL DIRECTIVE Care Teams Operating Room Surgical Technologist Relationship Specialty Start Date End Date Gisselle Mixon MD [address] [place] [address] PCP - General 04/05/15
--- OUTSIDE RECORDS SUMMARY | 2025-05-27 14:40 | XMS_ITS | Patient Health Record ---
Author Organization [facility] Address [address] [place] [address] Care Team Providers Care Residential Construction Instructor Name Role Phone Oral Gisselle Primary Care Provider Favian Sanchez M.D, M.P.H, Nunu Unavailable Allergies No Known Allergies Results Component Value Reference Range Notes HEREDITARY ENDOCRINE CANCER PANEL (Not yet reviewed by provider) Interpretation: Performing Lab:[facility], [facility],[address] [facility] Hailee Khan MD,PhD,TATYANA Notes/Report: RESULT NEGATIVE [...] least one such relative be provided to [employer]. GENE LIST SEE NOTE In total, 12 genes were analyzed as part of this panel: FH, MAX, MEN1, NF1, RET, SDHA, SDHAF2, SDHB, SDHC, SDHD, LWKW767, and VHL. CLINICAL INTERPRETATION NEGATIVE NO CLINICALLY [...] least one such relative be provided to [employer]. REVIEWER SEE NOTE Laboratory testing supervised and results monitored by Cole Bowman, Ph.D., [facility], [facility]. RESOURCES SEE NOTE Visit iFlexMe for physician information, patient materials, FAQs, and testing resources. Call 7-921-JMAC-INFO ( ) for genetic counseling consultations, pre-authorization services, and help finding patient genetic counseling services. Benign and likely benign variants with no known clinical significance are reported only by request. If a variant is reclassified with clinical implications, [employer] will endeavor to contact the ordering provider. Providers may contact [employer] at [phone] ( ) for assistance with result interpretation, questions about variant classification, or to discuss additional testing. The classification and interpretation of the variant(s) identified reflect the current state of [employer]' understanding at the time of this report. [...] questions regarding variant classification updates, please call [employer] at [phone]) to speak to a genetic counselor or laboratory equipment cleaner, or visit [email or web address] m/[email or web address]. For patients who are interested in sharing de-identified genetic and health information to improve understanding of genetics and health, please visit [email or web address] [email or web address]. [employer] is a third alliance party online registry designed by the [employer] ([employer]) and is not affiliated with [employer] in any way. This test was developed and its analytical performance characteristics have been determined by [employer]. It has not been cleared or approved [...] NF1, RET, SDHA, SDHAF2, SDHB, SDHC, SDHD, NHEK717, and VHL. The following NCBI reference transcript sequences were utilized for analysis: FH (NM 829264.3), MAX (NM 067926.4), MEN1 (NM 273796.2), NF1 (NM 503830.3), RET (NM 397925.4), SDHA (NM 673499.3), SDHAF2 (NM 103033.2), SDHB (NM 924799.2), SDHC (NM 555979.3), SDHD (NM 896034.3), XGTY428 (NM 587610.3), VHL (NM 919767.3). Reference genome: hg19 (build37). Limitations: This assay [...] be appropriate. ADDITIONAL INFORMATION SEE NOTE Visit [employer]FlexMe for physician information, patient materials, FAQs, and testing resources. Call 6-643-MRXD-INFO ( ) for genetic counseling consultations, pre-authorization services, and help finding patient genetic counseling services. Benign and likely benign variants with no known clinical significance are reported only by request. If a variant is reclassified with clinical implications, [employer] will endeavor to contact the ordering provider. Providers may contact [employer] at [phone] ( ) for assistance with result interpretation, questions about variant classification, or to discuss additional testing. The classification and interpretation of the variant(s) identified reflect the current state of [employer]' understanding at the time of this report. [...] questions regarding variant classification updates, please call [employer] at [phone]) to speak to a genetic counselor or laboratory equipment cleaner, or visit [email or web address] m/[email or web address]. For patients who are interested in sharing de-identified genetic and health information to improve understanding of genetics and health, please visit https://[email or web address]. GenomeConnect is a third alliance party online registry designed by the [employer] ([employer]) and is not affiliated with [employer] in any way. This test was developed and its analytical performance characteristics have been determined by [employer]. It has not been cleared or approved by FDA. This assay has been validated pursuant to the CLIA regulations and is used for clinical purposes. COPY(IES) SENT TO: (Not yet reviewed by provider) Interpretation: Performing Lab: Notes/Report: COPY(IES) SENT TO: [address] [address] METANEPHRINES, FRACT, FREE, LC/MS/MS, PLASMA (Not yet reviewed by provider) Interpretation: Performing Lab:[facility] [employer]/[facility] [id number] Hayden Scott, ZucijqmrvKS[address] Milton Covington M.D.,PhD Notes/Report: METANEPHRINE, FREE 64 <=57 pg/mL This test was developed and its analytical performance characteristics have been determined by [employer] [place], [place]. It has not been cleared or approved by the U.S. Food and Drug Administration. This assay has been validated pursuant to the CLIA regulations and is used for clinical purposes. NORMETANEPHRINE, FREE 48 <=148 pg/mL This test was developed and its analytical performance characteristics have been determined by [employer] [place], [place]. It has not been cleared or [...] analytical performance characteristics have been determined by [facility] [place] It has not been cleared or approved by the U.S. Food and Drug Administration. This assay has been validated pursuant to the CLIA regulations and is used for clinical purposes. For additional information, please refer to http://education.[facility]/faq/MetFractFr ee (This link is being provided for informational/educatio informational/educational purposes only.) Elevations >4-fold upper reference range: strongly suggestive of a pheochromocytoma(1). VANILLYLMANDELIC ACID, RANDO M URINE (Not yet reviewed by provider) Interpretation: Performing Lab:[facility], [facility]/[employer] [facility],[address] [facility] Hailee Khan MD,PhD,TATYANA Notes/Report: VANILLYLMANDELIC ACID, RANDO M URINE 2.3 1.1-4.1 mg/g creat This test was developed and its analytical performance characteristics have been determined by [employer]. It has not been cleared or approved by FDA. This assay has been validated pursuant to the CLIA regulations and is used for clinical purposes. CREATININE, RANDOM URINE 61 20-275 mg/dL COPY(IES) SENT TO: (Not yet reviewed by provider) Interpretation: Performing Lab: Notes/Report: FASTING:NO FASTING: NO COPY(IES) SENT TO: [address] [address] BUN/CREATININE RATIO (Not ye t reviewed by provider) Interpretation: Performing Lab:NL2, [employer] [facility] We[address] [place], [place] [id number] Richy Aguilar Notes/Report: FASTING:NO FASTING: NO UREA [...] Performing Lab: Notes/Report: Reason For Referral Reason [id number] - Surgery Auth Referral Organization [facility] Referring Provider First Name Nunu Referring Provider Last Name Daneil Referring Provider Speciality Otology, L aryngology, Rhinology Referred Organization [facility] Referred Provider Nunu Sanchez Referred Address [address] [facility],[place], [place],[address], Referred Provider Specialty Otology, Lar yngology, Rhinology Referral Priority Routine Medications Medication SIG (Take, Route, Frequency, Duration) Notes Start Date End Date Status Vitamin D3 50 MCG (1999) TAKE 1 CAPSU LE BY MOUTH ONCE DAILY Oral; Duration: 90 Days Active Metoprolol Succinate ER 50 MG Oral; Duration: 30 Days Acti ve Lisinopril 20 MG 1 tablet Orally Twic e a day; Duration: 30 days Active Metoprolol Succinate ER 100 MG Oral; Duration: 90 Days Acti ve amLODIPine Besylate 5 MG Oral; Duration: 90 Days Active Folic Acid 1 MG 1 tablet Orally Once a day Active Aspirin 81 81 MG 1 tablet Orally Once a day Active Clopidogrel Bisulfate 75 MG Oral; Duration: 30 Days Active Atorvastatin Calcium 40 MG Oral; Duration: 30 Days Active Social History Tobacco Use: [...] Date Provider Diagnosis [facility] [address] [facility] [address] [place] [address] 06/02/2024 Nunu Sanchez 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 [facility] [address] [facility] [address] [place] [phone] 06/12/2024 Nunu Du 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 [facility] [address] [place] [address] 08/06/2024 Nunu Du 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 [facility] [address] [place] [phone] 08/21/2024 Nunu Du 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 [facility] [address] [place] [phone] 11/20/2024 Nunu Du 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 [facility] [address] [place] [phone] 06/02/2024 Nunu Du 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 Had CTA head but no other imaging. Will try to obtain CTA head report from [facility]. She will also need CTA neck if [...] End Date [facility] [address] [address] [place] [address] [phone] [id number] Regine Carreon Self - patient is the [...]
== END 2025-05-27 14:20 | disposition home or self-care (01) ==
LOC: HO.HGS 14:07
PROVIDERS: PCP Internal Medicine; Visit Provider Surgery
DX: R10.9 Unspecified abdominal pain (principal)
CPT/HCPCS: 99213

== ENCOUNTER → 2025-05-27 14:06 | Outpatient (BNVA) | payer MEDICARE, SELFPAY | PROVIDERS: PCP Internal Medicine; Visit Provider Surgery | DX: R10.31 Right lower quadrant pain (principal) | CPT/HCPCS: 99212 ==

== ENCOUNTER 2025-10-05 10:26 | Inpatient (IN) | payer MEDICARE, SELFPAY ==
--- NOTE | ~2025-10-05 | FL_ITS ---
EXAMINATION: FLUOROSCOPY GUIDANCE FOR NEEDLE PLACEMENT CLINICAL INFORMATION: ERCP COMPARISON: Previous abdominal and pelvic CT, limited right upper quadrant abdominal ultrasound and MRCP from earlier this month TECHNIQUE: Intraoperative fluoroscopic guidance provided for ERCP. 4 cine sequences submitted. FINDINGS: Initial image demonstrates a wire in common bile duct. There is a filling defect in the distal common bile duct. The common bile duct is minimally dilated. Later images demonstrate a plastic internal biliary stent in the common bile duct. See procedure note for detailed findings. FLUOROSCOPY TIME: 9 minutes 21 seconds DOSE AREA PRODUCT: [id number] mGy-cm2 FL/FL guidance in OR IMPRESSION: Fluoroscopy guidance for ERCP. Electronically signed by: Andree Fontenot MD 10/07/2025 04:50 PM EST
--- NOTE | ~2025-10-05 | CT_ITS ---
CLINICAL HISTORY: right flank pain CT abdomen and pelvis with contrast Comparison: CT/SR - CT ABDOMEN PELVIS WITH IV CONTRAST - 05/01/25 15:08 EDT Findings: The lung bases are clear. Right liver lobe anterior segment low-attenuation lesion, 1.3 cm with the common probable hepatic cysts. Intra and extrahepatic biliary ductal dilatation. Common bile duct 0.7 cm. No bowel obstruction, pneumoperitoneum, or pneumatosis. Right renal interpolar interpolar region cortical low-attenuation lesion, 1 cm; renal cysts. The pancreatic tail dorsal aspect demonstrates a peripheral low-attenuation focus, 0.7 cm, axial image number 2494 series 3, coronal image number 19 of 85 series 7. The spleen, left and right kidney, right adrenal are within normal limits. Left adrenal lesion, 2.3 x 2 cm Pelvic contents unremarkable. Normal appendix. Prior bilateral total hip arthroplasties. Lumbar levoscoliosis. IMPRESSION: 1. Intra and extrahepatic biliary ductal dilatation. Common bile duct 0.7 cm; choledocholithiasis versus pancreatic ampullary lesion. Consider MRCP. 2. Pancreatic tail dorsal aspect peripheral low-attenuation lesion, 0.7 cm; probable pseudocyst, stable from 05/01/2025. 3. Prior Bilateral total hip arthroplasties. This document has been electronically signed by: Goyo Garcia MD on 10/05/2025 18:39:30
--- NOTE | ~2025-10-05 | US_ITS ---
CLINICAL HISTORY: GB, and CBD US abdomen limited Comparison: CT/REG/SR - CT ABDOMEN PELVIS W IV CON - 10/05/25 17:29 EST Findings: The liver is normal in size and echotexture. There is no intrahepatic bile duct dilatation. The common duct is 8 mm in diameter. The gallbladder demonstrates multiple intraluminal hyperechoic foci with posterior acoustic shadowing. There is no sonographic Bains sign. No ascites. IMPRESSION: Cholelithiasis. This document has been electronically signed by: Goyo Garcia MD on 10/05/2025 19:29:05
--- NOTE | ~2025-10-05 | MR_ITS ---
EXAMINATION: MRCP HISTORY: Choledocholithiasis COMPARISON: Correlation is made with abdominal CT and ultrasound examinations dated 10/05/2025. TECHNIQUE: Axial gradient echo in and out of phase T1, axial T2 and fat suppressed T2, and coronal haste T2 with fat saturation images were obtained through the abdomen. 3D MRCP Reconstructed images and thick slab imaging of the biliary tree were obtained. FINDINGS: There is no significant loss of signal intensity in the liver on opposed phase imaging to suggest steatosis. There is a 1.1 cm cyst at the dome of the left lobe. There is mild intrahepatic biliary ductal dilatation. There is cholelithiasis. There is dilatation of the common bile duct measuring up to 7 mm in diameter. There is a 6 mm calculus in the distal common bile duct at the ampulla. There are numerous cysts within the pancreas measuring up to 9 mm in the body and 8 mm in the tail. The pancreatic duct is normal in caliber. The spleen is unremarkable. The right adrenal gland is unremarkable. There is a 2.6 cm left adrenal mass. There is mild loss of signal intensity within the mass on opposed phase imaging, compatible with an adenoma. There is a 10 mm cyst in the interpolar region of the right kidney. The left kidney is unremarkable. No retroperitoneal lymphadenopathy or ascites is identified in the upper abdomen. MR/MR MRCP IMPRESSION: 1. Cholelithiasis. Choledocholithiasis with a 6 mm obstructing calculus at the ampulla. 2. Numerous cysts in the pancreatic body and tail measuring up to 9 mm. Outpatient pancreatic protocol MRI is recommended. 3. 2.6 cm left adrenal mass with imaging characteristics compatible with an adenoma. Electronically signed by: Salomón Cardona MD 10/06/2025 03:22 PM EST
--- NOTE | 2025-10-05 11:14 | ED_ITS ---
HPI - General Adult General Chief complaint: Urogenital-Female Stated complaint: blood in urine Time Seen by Provider: 10/05/25 15:37 Source: patient Mode of arrival: ambulatory Limitations: no limitations History of Present Illness ED Provider: HPI narrative: Regine is a 80-year-old female who presents to the Emergency Department for evaluation of dark, bloody-appearing urine that began Sunday night. She denies any prior episodes. She experienced one episode of vomiting at the time of onset. She currently denies abdominal pain, but reports intermittent right-sided ?side pain? that comes and goes. She has no fever. She recalls being told of ?gallbladder issues? in the past and was evaluated by Dr. Wilcox. She denies alcohol use, smoking, and excessive acetaminophen intake. Her appetite has been diminished. Current medications include blood-pressure medication; she also uses nightly eye drops. * Constitutional: denies fever. * Gastrointestinal: single episode of vomiting with onset; no current abdominal pain. * Genitourinary: dark, bloody-appearing urine since Sunday night. * Respiratory: no shortness of breath or wheezing reported. * Eyes: no visual complaints; under treatment with nightly eye drops. Related Data Home Medications ?Medication ?Instructions ?Recorded ?Confirmed aspirin 81 mg tablet 81 mg PO DAILY 04/01/2509/21 atorvastatin 40 mg tablet 40 mg PO DAILY 10/05/2509/21 clonidine HCl 0.1 mg tablet 0.1 mg PO BID 10/05/25 latanoprost 0.005 % eye drops 1 drp ophthalmic (eye) B EDTIME 10/05/25 10/05/25 lisinopril 20 mg tablet 20 mg PO BEDTIME 10/05/25 lisinopril 20 1 tab PO DAILY 10/05/2509/21 mg-hydrochlorothiazide 12.5 mg tablet metoprolol succinate 50 mg 50 mg PO DAILY 10/05/25 tablet,extended release 24 hr Previous Rx's ?Medication ?Instructions ?Recorded cholecalciferol (vitamin D3) 50 50 mcg PO DAILY #30 ca ps 11/19/23 mcg (2,000 unit) capsule Allergies Allergy/AdvReac Type Severity Reaction Status Date / Time shellfish derived Allergy Unknown Swelling Verified 10/05/25 11:16 Review of Systems 2 Constitutional: Constitutional: Reports as per [facility] Past Medical History Medical History Right flank pain Hyperparathyroidism Surgical History History of surgery History of left hip replacement History of right knee joint replacement History of total right hip replacement Family History Family History Mother Diabetes Father Lung cancer Social History Social History Household Members: Spouse Housing: House Do you presently have visiting nurse or other home services: No Alcohol intake: never Patient Tobacco Use Status: Never used Tobacco Smoked in Last 30 Days: No Use of substances other than those prescribed or required for medical reasons: No Currently Displaying Signs/Symptoms of Drug Intoxication Withdrawal: No Have you been hit, kicked, punched, or otherwise hurt by someone within the past year? If so, by whom?: No Do you feel safe in your current relationship?: Yes Is there a partner from a previous relationship who is making you feel unsafe now?: No Are you made to feel afraid or neglected: No Advance Directives: Yes Advance Directives Information Provided: Yes Advance Directives on File: No Advance Directives Date on File: 10/06/25 Do you have a plan to hurt others: No Plan Recently lost weight without trying: No Nutrition Risks: Poor intake 0-25% >4 days Patient : No : No Poor oral hygiene: No service: No Physical Exam ED Exam Exam: Physical Exam: * General: alert, cooperative, seated in walker, no acute distress. * Eyes: no scleral icterus noted. * Oropharynx: moist mucous membranes; tongue and oral cavity without lesions. * Cardiovascular: S1, S2 present; regular rate and rhythm. * Respiratory: lungs clear to auscultation bilaterally; no wheezes. * Abdomen: soft, non-tender; bowel sounds present. * Flanks/Costovertebral angle: no focal tenderness elicited; patient reports intermittent side pain but none at exam. Vital Signs: Vital Signs - 24 hr 10/05/25 11:15 Temperature 97.6 F Pulse Rate 95 Respiratory Rate 18 Blood Pressure 106/59 L Pulse Oximetry 95 Oxygen Delivery Method Room Air BMI result Body Mass Index 19.6 Course Course Course Narrative: Rapid medical examination performed in triage by Rosemary Krishnamurthy PA-C: Patient is a 80 year old assigned female at presenting to the emergency department with blood in her urine. Patient states she has had blood in her urine since yesterday. Detailed physical exam and review of systems are deferred to the childcare attendant. Labs ordered. Patient placed back in the waiting room pending room availability and results. Medications Administered Generic Name Dose Route Start Last Admin Trade Name Freq PRN Reason Stop Dose Admin Atorvastatin Calcium 40 mg 10/07/25 09:00 10/07/25 08:11 Atorvastatin Calcium 40 Mg Tablet PO 40 mg DAILY AYAN Administration Clonidine HCl 0.1 mg 10/06/25 21:00 10/07/25 08:11 Clonidine Hcl 0.1 Mg Tablet PO 0.1 mg BID AYAN Administration Protocol Lisinopril 20 mg/ 0 mg 10/07/25 09:00 10/07/25 08:08 Hydrochlorothiazide 12.5 mg PO 1 tablet DAILY AYAN Administration Docusate Sodium 100 mg 10/05/25 21:00 10/07/25 08:11 Docusate Sodium 100 Mg Capsule PO 100 mg BID AYAN Administration Enoxaparin Sodium 40 mg 10/05/25 20:00 10/06/25 20:28 Enoxaparin Sodium 40 Mg/0.4 Ml Syringe SUBCUT Not Given On Hold: 10/06/25 20:27 Q24H AYAN Lactated Ringer's 1,000 mls @ 100 mls/hr 10/05/25 19:45 10/07/25 05:07 Lr IVCONT 100 mls/hr .Q10H AYAN Administration Latanoprost 1 drop 10/06/25 21:00 10/06/25 21:15 Latanoprost 0.005 % Ophth Nena 2.5 Ml Drops EYE-BOTH 1 drop BEDTIME AYAN Administration Lisinopril 20 mg 10/06/25 21:00 10/06/25 20:48 Lisinopril 20 Mg Tablet PO 20 mg BEDTIME AYAN Administration Protocol Metoprolol Succinate 50 mg 10/07/25 09:00 10/07/25 08:11 Metoprolol Succinate Er 50 Mg Tab.Er.24h PO 50 mg DAILY AYAN Administration Protocol Senna 17.2 mg 10/05/25 21:00 10/06/25 20:48 Sennosides 8.6 Mg Tablet PO 17.2 mg BEDTIME AYAN Administration Sodium Chloride 3 ml 10/06/25 00:00 10/07/25 08:03 0.9 % Sodium Chloride Flush 3 Ml Syringe IVFLUSH Not Given QSHIFT AYAN Vitamin D 50 mcg 10/07/25 09:00 10/07/25 08:11 Cholecalciferol (Vitamin D3) 25 Mcg Tablet PO 50 mcg DAILY AYAN Administration Discontinued Medications Generic Name Dose Route Start Last Admin Trade Name Freq PRN Reason Stop Dose Admin Sodium Chloride 1,000 mls @ 999 mls/hr 10/05/25 16:00 10/05/25 18:11 Ns IV 10/05/25 17:00 Infused .Q1H1M AYAN Infusion Ceftriaxone Sodium 2 gm/ 50 mls @ 100 mls/hr 10/06/25 16:26 10/06/25 18:01 Sodium Chloride IV 10/06/25 16:55 Infused PRE PROCEDURE ONE Infusion Indomethacin 100 mg 10/06/25 16:15 10/06/25 16:38 Indomethacin 50 Mg Supp.Rect SD 10/06/25 16:16 Not Given PRE PROCEDURE ONE Iohexol 100 ml 10/05/25 17:33 10/05/25 17:34 Iohexol 350 Mg/Ml 100 Ml Infus..Btl IV 10/05/25 17:34 85 ml ONCE ONE Administration Procedures EJ/Peripheral Line Arm L: Time Out Performed: Yes Skin Cleansed in Sterile Fashion: Yes Size (gauge): 18 IV Secured and Dressing Applied: Yes Patient Tolerated Procedure: well and no complications Additional Comments: Ultrasound guidance with 18 gauge Angiocath. Flushed without difficulty. Secured. RN notified. Medical Decision Making Medical Decision Making [facility] Narrative: 4:02 PM 10/05/2025 (Dr. Anshu Saravia): Emergency Department Course Initial blood work revealed markedly elevated liver enzymes. Bedside examination performed as above. Patient instructed to remain on gurney; IV fluids initiated to facilitate urine collection. A urine sample was sent for urinalysis. Orders placed for liver/gallbladder ultrasound and abdominal CT to evaluate for masses, gallbladder pathology, kidney stones, or infection. Differential diagnosis discussed with patient includes hematuria vs. bilirubinuria from hepatic dysfunction, cystitis, cholelithiasis, or other hepatobiliary disease. Prior documentation from Dr. Wilcox will be reviewed for comparison. Differential Diagnosis * Hematuria (Urinary Tract Infection, Nephrolithiasis): Dark urine may be due to blood in the urine from a urinary tract infection or kidney stones. However, the absence of dysuria, fever, or significant flank tenderness makes these less likely, though intermittent right-sided pain could suggest nephrolithiasis. * Bilirubinuria from Hepatic Dysfunction (Acute Hepatitis, Biliary Obstruction, Cholelithiasis, Cholangitis): Markedly elevated liver enzymes and dark urine raise concern for conjugated hyperbilirubinemia due to hepatocellular injury or biliary obstruction. The patient's history of gallbladder issues and diminished appetite support possible biliary pathology. Lack of jaundice or fever makes cholangitis less likely, but cannot be excluded without further workup. * Medication-Induced Liver Injury: The patient is on blood pressure medication and nightly eye drops, but denies excessive acetaminophen or alcohol use. Medication-induced hepatotoxicity remains a consideration, especially in the elderly. * Malignancy (Hepatic, Biliary, or Renal): Malignancy can present with elevated liver enzymes and dark urine, particularly in older adults. Imaging is warranted to evaluate for masses. * Autoimmune Hepatitis or Other Less Common Causes: Autoimmune hepatitis and other rare hepatic disorders may present similarly but are less likely given the acute onset and lack of prior history. Differential Diagnosis Differential Diagnoses: The differential diagnosis associated with the presentation includes (See above) Admission/Observation Consideration of admission/observation: Escalation of care including admission/observation considered Lab Data MDM Lab Attestation statement: I reviewed the patient's lab results. 10/05/25 11:52 10/06/25 03:44 Labs: Lab Results 10/05/25 10/05/25 10/05/25 Range/Units 11:52 16:20 16:21 WBC 6.4 (4.8-10.8) X10*3/uL RBC 4.76 (4.20-5.50) X10*6/uL Hgb 13.7 (12.0-16.0) g/dl Hct 42.2 (37.0-47.0) % MCV 88.7 (80.0-98.0) fL MCH 28.8 (27.0-33.0) pg MCHC 32.5 (31.0-35.0) g/dl RDW 14.9 (11.0-16.0) % Plt Count 228 (160-400) X10*3/uL MPV 10.4 (9.4-12.3) fL Immature Gran % (Auto) 0.3 (0.0-0.4) % Neut % (Auto) 63.2 (45-73) % Lymph % (Auto) 20.9 (20-40) % [place] % (Auto) 10.1 (2-11) % Eos % (Auto) 4.7 H (0-4) % Baso % (Auto) 0.8 (0-2) % Lymph # (Auto) 1.3 (1.2-4.9) X10*3/uL [place] # (Auto) 0.7 (0.1-1.2) X10*3/uL Eos # (Auto) 0.3 (0.0-0.4) X10*3/uL Baso # (Auto) 0.1 (0.0-0.2) X10*3/uL Abs Immat Gran (auto) 0.02 (0.00-0.03) X10*3/uL Absolute Neuts (auto) 4.1 (2.0-8.3) x10*3/uL Absolute Nucleated RBC 0.000 (0.0-0.012) X10*3/uL Nucleated RBC % (auto) 0.0 (0.0-0.2) /100WBC PT 12.7 11.7 (11.2-13.5) SEC INR 1.0 1.0 (0.9-1.1) Sodium 140 (135-145) mmol/L Potassium 3.9 (3.3-5.1) mmol/L Chloride 105 (96-108) mmol/L Carbon Dioxide 25 (22-29) mmol/L Anion Gap 14 (12-20) BUN 31 H (9-16) mg/dL Creatinine 1.39 (0.5-1.4) mg/dL Estim Creat Clear Calc 30.8 Estimated GFR 37 Random Glucose 99 (60-115) mg/dL Lactic Acid 1.4 (0.5-2.0) mmol/L Calcium 11.3 H (8.4-10.2) mg/dL Magnesium 2.4 (1.6-2.6) mg/dL Total Bilirubin 5.5 H (0.0-1.0) mg/dL AST 299 H (5-31) U/L ALT 825 H (0-31) U/L Alkaline Phosphatase 308 H (39-117) U/L Total Protein 7.4 (6.5-8.0) g/dL Albumin 4.3 (3.5-5.0) g/dL Acetaminophen (<30) mcg/mL Hepatitis A IgM Ab (Nonreactive) Hep Bs Antigen (Negative) Hep Bs Antibody (Nonreactive) Hep B Core Total Ab (Nonreactive) Hepatitis C Ab (EIA) (Nonreactive) 10/05/25 Range/Units 18:04 WBC (4.8-10.8) X10*3/uL RBC (4.20-5.50) X10*6/uL Hgb (12.0-16.0) g/dl Hct (37.0-47.0) % MCV (80.0-98.0) fL MCH (27.0-33.0) pg MCHC (31.0-35.0) g/dl RDW (11.0-16.0) % Plt Count (160-400) X10*3/uL MPV (9.4-12.3) fL Immature Gran % (Auto) (0.0-0.4) % Neut % (Auto) (45-73) % Lymph % (Auto) (20-40) % [place] % (Auto) (2-11) % Eos % (Auto) (0-4) % Baso % (Auto) (0-2) % Lymph # (Auto) (1.2-4.9) X10*3/uL [place] # (Auto) (0.1-1.2) X10*3/uL Eos # (Auto) (0.0-0.4) X10*3/uL Baso # (Auto) (0.0-0.2) X10*3/uL Abs Immat Gran (auto) (0.00-0.03) X10*3/uL Absolute Neuts (auto) (2.0-8.3) x10*3/uL Absolute Nucleated RBC (0.0-0.012) X10*3/uL Nucleated RBC % (auto) (0.0-0.2) /100WBC PT (11.2-13.5) SEC INR (0.9-1.1) Sodium (135-145) mmol/L Potassium (3.3-5.1) mmol/L Chloride (96-108) mmol/L Carbon Dioxide (22-29) mmol/L Anion Gap (12-20) BUN (9-16) mg/dL Creatinine (0.5-1.4) mg/dL Estim Creat Clear Calc Estimated GFR Random Glucose (60-115) mg/dL Lactic Acid (0.5-2.0) mmol/L Calcium (8.4-10.2) mg/dL Magnesium (1.6-2.6) mg/dL Total Bilirubin (0.0-1.0) mg/dL AST (5-31) U/L ALT (0-31) U/L Alkaline Phosphatase (39-117) U/L Total Protein (6.5-8.0) g/dL Albumin (3.5-5.0) g/dL Acetaminophen < 3 (<30) mcg/mL Hepatitis A IgM Ab Nonreactive (Nonreactive) Hep Bs Antigen Negative (Negative) Hep Bs Antibody NONREACTIVE (Nonreactive) Hep B Core Total Ab Nonreactive (Nonreactive) Hepatitis C Ab (EIA) Nonreactive (Nonreactive) Discharge Plan Discharge Clinical Impression: Gall bladder pain Patient Disposition: Admitted As Inpatient Interventions: Admission Worksheet (ED) Last Done: 10/06/25 07:13 Discharge Date/Time: 10/06/25 07:58
[2025-10-05 11:15] VITALS: BP 106/59; PULSE 95; RESP 18; TEMP 36.4; O2SAT 95; BMI 19.6
[2025-10-05 11:58] LABS: MANUAL DIFF FLAG NO
[2025-10-05 12:01] LABS: Hematocrit 42.2 % (37.0-47.0); Hemoglobin 13.7 g/dl (12.0-16.0); Imm Gran Abs Auto 0.02 X10*3/uL (0.00-0.03); Imm Gran Pct Auto 0.3 % (0.0-0.4); Lymphocytes Absolute Auto 1.3 X10*3/uL (1.2-4.9); Mean Corpuscular HGB Conc 32.5 g/dl (31.0-35.0); Mean Corpuscular Hemoglobin 28.8 pg (27.0-33.0); Mean Corpuscular Volume 88.7 fL (80.0-98.0); NRBC Abs Auto 0.000 X10*3/uL (0.0-0.012); NRBC Pct Auto 0.0 /100WBC (0.0-0.2); Platelet Count 228 X10*3/uL (160-400); Red Blood Count 4.76 X10*6/uL (4.20-5.50); White Blood Count 6.4 X10*3/uL (4.8-10.8)
[2025-10-05 12:10] LABS: INTERNATIONAL NORM RATIO 1.0 (0.9-1.1); Prothrombin Time 12.7 SEC (11.2-13.5)
[2025-10-05 12:30] LABS: Alanine Aminotransferase 825 U/L (0-31); Albumin Level 4.3 g/dL (3.5-5.0); Alkaline Phosphatase 308 U/L (39-117); Anion Gap 14 (12-20); Aspartate Amino Transferase 299 U/L (5-31); Blood Urea Nitrogen 31 mg/dL (9-16); Calcium 11.3 mg/dL (8.4-10.2); Carbon Dioxide 25 mmol/L (22-29); Chloride 105 mmol/L (96-108); Creatinine Clr Calc Pharmacy 30.8; Estimated Glomerular Filt Rate 37; Magnesium 2.4 mg/dL (1.6-2.6); Potassium 3.9 mmol/L (3.3-5.1); Sodium 140 mmol/L (135-145); Total Protein 7.4 g/dL (6.5-8.0)
[2025-10-05 16:55] LABS: INTERNATIONAL NORM RATIO 1.0 (0.9-1.1); Prothrombin Time 11.7 SEC (11.2-13.5)
[2025-10-05] MEDS: iohexoL 350 MG/ML 100 ML INFUS..BTL IV (17:34)
[2025-10-05 18:35] VITALS: BP 136/72; PULSE 89; RESP 15; TEMP 36.8; O2SAT 95
[2025-10-05 18:35] LABS: Acetaminophen LAB < 3 mcg/mL (<30)
[2025-10-05 19:16] VITALS: BP 147/77; PULSE 94; RESP 20; TEMP 36.8; O2SAT 97
--- NOTE | 2025-10-05 19:35 | PM.IMHP ---
History of Present Illness Date of Service: 10/05/25 Chief Complaint: Right upper quadrant abdominal pain 80-year-old female with a past medical history of hypertension, hyperlipidemia, history of a probe placement; presented to the hospital with a chief complaint of right upper quadrant abdominal pain. Patient reports that she has been having intermittent right upper quadrant abdominal pain. Has seen General surgery as outpatient. Reports that over the past few days she noted to have dark urine. Denies any fevers and chills. Reports having associated nausea and vomiting. Denies any diarrhea. Denies any food poisoning. Reports her pain is mostly in the right upper quadrant area. Review of all other systems is negative except mentioned above ER course: Per ER team, patient noted to have right upper quadrant tenderness; on labs noted to have elevated T bili and LFTs; CT scan showed findings concerning for choledocholithiasis. Patient was afebrile and no leukocytosis. Notified gastroenterology-who suggested MRCP. [facility] Medical History Stroke Hypertension Right flank pain Hyperparathyroidism Family History Mother Diabetes Father Lung cancer Surgical History History of surgery History of left hip replacement History of right knee joint replacement History of total right hip replacement Social History Household Members: Spouse Housing: House Do you presently have visiting nurse or other home services: No Alcohol intake: never Patient Tobacco Use Status: Never used Tobacco Advance Directives Date on File: 10/06/25 service: No Meds Allergies Allergy/AdvReac Type Severity Reaction Status Date / Time shellfish derived Allergy Unknown Swelling Verified 10/05/25 11:16 Active Medications: Current Medications Acetaminophen (Acetaminophen 325 Mg Tablet) 650 mg PO Q6H PRN PRN Reason: Pain, Mild 1-3,fever,headache Calcium Carbonate (Calcium Carbonate 750 Mg Tab.Chew) 750 mg PO Q4H PRN PRN Reason: Heartburn Docusate Sodium (Docusate Sodium 100 Mg Capsule) 100 mg PO BID AYAN Enoxaparin Sodium (Enoxaparin Sodium 40 Mg/0.4 Ml Syringe) 40 mg SUBCUT Q24H AYAN Hydromorphone HCl (Hydromorphone Hcl 1 Mg/Ml Syringe) 0.5 mg IVPUSH Q4H PRN; Protocol PRN Reason: Breakthrough Pain Lactated Ringer's (Lr) 1,000 mls @ 100 mls/hr IVCONT .Q10H AYAN Magnesium Hydroxide (Milk Of Magnesia 30 Ml Oral.Susp) 30 ml PO DAILY PRN PRN Reason: Constipation Melatonin (Melatonin 3 Mg Tablet) 6 mg PO BEDTIME PRN PRN Reason: Insomnia Senna (Sennosides 8.6 Mg Tablet) 17.2 mg PO BEDTIME AYAN Sodium Chloride (0.9 % Sodium Chloride Flush 3 Ml Syringe) 3 ml IVFLUSH QSHIFT AYAN Home Medications ?Medication ?Instructions ?Recorded ?Confirmed ?Last Taken ?Type aspirin 81 mg tablet 81 mg PO DAILY 04/01/25 10/05/25 10/04/25 History Held on 10/08/25. Instructions: Resume on 10/15/25. atorvastatin 40 mg tablet 40 mg PO DAILY 10/05/25 10/05/25 10/04/25 History clonidine HCl 0.1 mg tablet 0.1 mg PO BID 10/05/25 10/05/25 10/04/25 History latanoprost 0.005 % eye drops 1 drp ophthalmic (eye) BEDTIME 10/05/25 10/05/25 10/04/25 History lisinopril 20 mg tablet 20 mg PO BEDTIME 10/05/25 10/05/25 10/04/25 History lisinopril 20 1 tab PO DAILY 10/05/25 10/05/25 10/04/25 History mg-hydrochlorothiazide 12.5 mg tablet metoprolol succinate 50 mg 50 mg PO DAILY 10/05/25 10/05/25 10/04/25 History tablet,extended release 24 hr Physical Exam Vital Signs and Narrative: Vital Signs: Last Vital Signs Temp 98.3 F 10/05/25 19:16 Pulse 94 10/05/25 19:16 Resp 20 10/05/25 19:16 BP 147/77 H 10/05/25 19:16 Pulse Ox 97 10/05/25 19:16 O2 Del Method Room Air 10/05/25 19:16 BMI result Body Mass Index 19.6 Gen: Appears be in no acute distress HEENT: NCAT, Moist mucosa. Pulmonary: Vesicular breath sounds, fair air entry CVS: Normal S1-S2 Abdomen: BS+, Soft, mildly tender in the right upper quadrant Extremities: Warm well perfused Neuro: Alert and awake. Results Labs 10/08/25 05:08 10/06/25 03:44 Labs: Laboratory Results - last 24 hr 10/05/25 10/05/25 10/05/25 11:52 16:20 16:21 MCV 88.7 MCH 28.8 MCHC 32.5 RDW 14.9 Plt Count 228 MPV 10.4 Immature Gran % (Auto) 0.3 Neut % (Auto) 63.2 Lymph % (Auto) 20.9 [place] % (Auto) 10.1 Eos % (Auto) 4.7 H Baso % (Auto) 0.8 Lymph # (Auto) 1.3 [place] # (Auto) 0.7 Eos # (Auto) 0.3 Baso # (Auto) 0.1 Abs Immat Gran (auto) 0.02 Absolute Neuts (auto) 4.1 Absolute Nucleated RBC 0.000 Nucleated RBC % (auto) 0.0 PT 12.7 11.7 INR 1.0 1.0 Anion Gap 14 Estim Creat Clear Calc 30.8 Estimated GFR 37 Random Glucose 99 Lactic Acid 1.4 Calcium 11.3 H Magnesium 2.4 Total Bilirubin 5.5 H AST 299 H ALT 825 H Alkaline Phosphatase 308 H Total Protein 7.4 Albumin 4.3 Acetaminophen 10/05/25 18:04 MCV MCH MCHC RDW Plt Count MPV Immature Gran % (Auto) Neut % (Auto) Lymph % (Auto) [place] % (Auto) Eos % (Auto) Baso % (Auto) Lymph # (Auto) [place] # (Auto) Eos # (Auto) Baso # (Auto) Abs Immat Gran (auto) Absolute Neuts (auto) Absolute Nucleated RBC Nucleated RBC % (auto) PT INR Anion Gap Estim Creat Clear Calc Estimated GFR Random Glucose Lactic Acid Calcium Magnesium Total Bilirubin AST ALT Alkaline Phosphatase Total Protein Albumin Acetaminophen < 3 Assessment and Plan (1) Choledocholithiasis: Status: Acute Plan 80-year-old female with a past medical history of hypertension, hyperlipidemia, history of a probe placement; presented to the hospital with a chief complaint of right upper quadrant abdominal pain. Admitted for following Choledocholithiasis: Transaminitis: Trend liver enzymes Gastroenterology consult was notified MRCP Acute hepatitis panel Patient is afebrile, no leukocytosis-will hold off antibiotics for now. HTN/HLD: Resume home medications once med rec completed with pharmacy in a.m. DVT prophylaxis: Lovenox Code status: Full code Quality Stroke Does the patient have a stroke diagnosis?: No VTE Prior VTE?: No VTE Risk Level:: Medical - moderate - high VTE Device Contraindication: Treatment Not Indicated VTE Drug Contraindication: N/A - Med Ordered
[2025-10-05 21:15] VITALS: BP 134/80; PULSE 93; RESP 13; O2SAT 92
--- NOTE | 2025-10-05 21:20 | PHA.MEDREC ---
Pharmacy Consult ? Medication Reconciliation Pharmacy has completed the medication reconciliation. Spoke with patient at bedside, she confirmed her home meds. States she takes lisinopril with HCTZ in the morning, and an extra lisinopril 20mg at night.
--- OUTSIDE RECORDS SUMMARY | 2025-10-05 21:34 | XMS_ITS | Patient Health Record ---
Author Organization [facility] Address [address] [place] [address] Support Name Relationship Address Phone MAGALY FLORES Guarantor Unknown [phone] Reason For Referral No Information Medications Medication [...] Status Risk Notes Problem Benign essential hypertension (5032964) Essential hypertension, benign (401.1) Active confirmed Major Problem Gynecological examination normal (644157441954202) Routine gynecological examination (V72.31) Active confirmed Diag Plan Of Treatment No Information Insurance Providers Payer Name Payer Address Payer Phone Subscriber Number Group Number Insured Name Patient Relationship to Insured Coverage Start Date Coverage End Date [employer] Medicare Complete by Emelia esquivel [address] [place] [address] [id number] MAGALY FLORES Self - patient is the insured
--- OUTSIDE RECORDS SUMMARY | 2025-10-05 21:34 | XMS_ITS | Patient Health Record ---
Author Organization [facility] Address [address] [place] [address] Care Team Providers Care Technical Expert Name Role Phone Oral Gisselle Primary Care Provider Favian Sanchez M.D, M.P.H, [place] Unavailable [phone] Allergies No Known Allergies Reason For Referral No Information Medications Medication [...] the p ast year? 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 [address] [place] [address] [phone] [id number] Regine Carreon Self - patient is the [...]
--- OUTSIDE RECORDS SUMMARY | 2025-10-05 21:34 | XMS_ITS | Clinical Summary ---
Author Organization [facility] [address] [facility] Address [address] [place] [address] Phone Care Team Providers Care Field Marketing Lead Name Role Phone Gisselle Mixon MD Primary Care Provider [phone] Allergies Active Allergy Reactions Criticality Noted Date [...] Diagnosed Date Class 1 obesity 02/26/2025 Hyperparathyroidism 02/26/2025 Hypertension 02/26/2025 Cervical cord compression with myelopathy 2021 Overview (02/20/2025): Last Assessment & Plan: Ms. [...] using her rollator. 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) (Primary Dx) 08/17/2025 12:30 PM EDT Treatment [address] [phone] Diogo Cerrato, GEAR MACHINE OPERATOR GENERAL Weakness (Primary Dx); Antalgic gait; 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) 08/10/2025 3:00 PM EDT Treatment [address] [phone] Diogo Cerrato, GEAR MACHINE OPERATOR GENERAL Weakness (Primary Dx); Antalgic gait; 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) 08/06/2025 1:00 PM EDT Treatment [address] [address] Diogo Cerrato, GEAR MACHINE OPERATOR GENERAL Weakness (Primary Dx); Antalgic gait; 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) 08/04/2025 12:00 PM EDT Treatment [address] [place] [address] Diogo Cerrato, GEAR MACHINE OPERATOR GENERAL Weakness (Primary Dx); Antalgic gait; 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) 07/30/2025 1:00 PM EDT Treatment [address] [phone] Diogo Cerrato, GEAR MACHINE OPERATOR GENERAL Weakness (Primary Dx); Antalgic gait; 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) 07/28/2025 12:30 PM EDT Treatment [address] [phone] Diogo Cerrato, GEAR MACHINE OPERATOR GENERAL Weakness (Primary Dx); Antalgic gait; 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 (CMS/HCC V24, CMS/HCC V28) Artificial knee joint present, right Presence [...] Safety Answer Date Record ed Physical Abuse Unrecognized value 05/18/2025 Verbal Abuse Unrecognized value 05/18/2025 Comments No Sex and Gender Information Value Date Recorded Sex Assigned at Female 05/18/2025 7:45 AM EDT Legal Sex Female 6:48 PM EST Gender Identity Female 05/18/2025 7:45 AM EDT Sexual Orientation Not on file Last Filed Vital Signs Vital Sign Reading [...] 09/23/2022 Social Influencers of Health Screening 09/23/2022 Depression Screening 10/22/2024 Hypertension/CHF/CAD Annual BMP Blood Test 02/26/2025 COVID-19 Vaccine ( season) 2025 12/02/2021, 01/26/2021, 01/05/2021 Influenza Vaccine (#1) 2025 Falls Risk Assessment [...] Maintenance Results * COLONOSCOPY Anesthesia - MAC; [facility] ENDOSCOPY (05/18/2025 9:52 AM EDT) Anatomical Region Laterality Modality Endoscopy 05/18/2025 9:26 AM EDT Impressions 05/18/2025 9:54 AM EDT - The entire examined colon is normal on direct and retroflexion views. - No specimens collected. Recommendation: - Repeat colonoscopy is not recommended due to current age (66 years or older). Narrative 05/18/2025 9:54 AM EDT [facility] GI Patient Name: Regine Flores Procedure Date: [...] malignant neoplasm of colon CPT copyright 2020 [employer]. All rights reserved. The codes documented in this report are preliminary and upon education paraprofessional review may be revised to meet current compliance requirements. Abhinav Marks MD 05/18/2025 9:54:00 AM This report has been signed electronically.Abhinav Marks MD Number of Addenda: 0 Note Initiated On: 05/18/2025 9:26 AM Scope In: Scope Out: Endoscopy Department at [facility] - [address] [place] [phone] Procedure Note Abhinav Marks MD - 05/18/2025 [facility] GI Patient Name: Regine Flores Procedure Date: [...] for malignantneoplasm of colon CPT copyright 2020 [employer]. All rights reserved. The codes documented in this report are preliminary and upon education paraprofessional reviewmay be revised to meet current compliance requirements. Abhinav Marks MD 05/18/2025 9:54:00 AM This report has been signed electronically.Abhinav Marks MD Number of Addenda: 0 Note Initiated On: 05/18/2025 9:26 AM Scope In: Scope Out: Endoscopy Department at [facility] - [address] [place] [phone] IMPRESSION: - The entire examined colon is [...] EDT Narrative 02/25/2021 2:[address] [facility] Diagnostic Imaging Department [address] [place] [address] [id number] Patient: REGINE FLORES /Age/Sex: 1945 - 75 - F Unit#: [id number] Location/Status: SPDIMAM/REG CLI Mnemonic[facility] Ordering Physician: RADHA LEAVITT MD [...] since the prior study of 01/06/2019. Code 40883 Dictating Physician: SARAI GAVIN MD Electronically Signed by: SARAI AGVIN MD Dic Date/Time: 02/25/21 1455 Sign date/Time: 02/25/21 145 Procedure Note Sarai Gavin MD - 10/10/2022 [facility] Diagnostic Imaging Department [address] [place] [address] Patient: REGINE FLORES Luzma /Age/Sex: 1945 - 75 - F Unit#: [id number] Location/Status: SPDIMAM/REG CLI Mnemonic[facility] Ordering Physician: RADHA LEAVITT MD Ruben Dexa Append Skeleton - 02/25/21 6736 HISTORY: The patient is a 75-year-old postmenopausal [...] since the prior study of 01/06/2019. Code 17627 Dictating Physician: SARAI GAVIN MD Electronically Signed by: SARAI GAVIN MD Dic Date/Time: 02/25/21 1455 Sign date/Time: 02/25/21 1457 Radha Leavitt MD IMG BI PROCEDURES Final Result from Last 3 Months or Most Recently Relevant to Health Maintenance Insurance [employer] MEDICARE Advance Directives Documents on File Type Date Recorded Patient [employer] Expl anation Health Care Decision (hx) 10/11/2021 [...] (hx) 10/11/2021 AD CARROLL DIRECTIVE Care Teams Field Marketing Lead Relationship Specialty Start Date End Date Gisselle Mixon MD [address] [place] [address] PCP - General 04/05/15
[2025-10-05] MEDS: Lactated Ringers 1,000 ML 100 ML IVCONT (22:06)
[2025-10-06] VITALS (8 sets, daily range): BP systolic 121–150; BP diastolic 65–88; PULSE 88–105; RESP 13–20; TEMP 36.1–37.2; O2SAT 92–95; BMI 34.6
[2025-10-06 04:29] LABS: Alanine Aminotransferase 647 U/L (0-31); Albumin Level 3.7 g/dL (3.5-5.0); Alkaline Phosphatase 285 U/L (39-117); Anion Gap 16 (12-20); Aspartate Amino Transferase 228 U/L (5-31); Blood Urea Nitrogen 27 mg/dL (9-16); Calcium 10.6 mg/dL (8.4-10.2); Carbon Dioxide 20 mmol/L (22-29); Chloride 110 mmol/L (96-108); Creatinine Clr Calc Pharmacy 36.6; Estimated Glomerular Filt Rate 45; Potassium 4.5 mmol/L (3.3-5.1); Sodium 141 mmol/L (135-145); Total Protein 6.9 g/dL (6.5-8.0)
[2025-10-06 04:50] LABS: HBS Num1 0.00 mIU/mL (0-7.99); HBc Num1 0.07 S/CO (0.00-0.79); HBsAGNum1 0.38 S/CO (0.00-0.99); Hepatitis A Antibody IgM 0.27 Index (0-0.79); Hepatitis B Surface Antigen Negative (Negative); ~HepC Num1 0.07 S/CO (0.00-0.79); ~Hepatitis A Antibody IgM Nonreactive (Nonreactive); ~Hepatitis B Surface Antibody NONREACTIVE (Nonreactive); ~Hepatitis C Antibody Nonreactive (Nonreactive)
[2025-10-06] MEDS: Lactated Ringers 1,000 ML 100 ML IVCONT ×2 (06:18→17:55)
--- NOTE | 2025-10-06 06:29 | PC.NURSE ---
T/W noted IV line infiltrated, fluids paused. Pt difficult stick.
--- NOTE | 2025-10-06 08:28 | MHC.CM.PN ---
IMM was addressed with Patient. Patient lives in a house with her /HCP/Yuri, who will transport at dc. Patient uses a walker and home/self care is her goal;CM has initiated and will follow for dc planning. PCP is Dr. Ann Scott.
--- NOTE | 2025-10-06 09:07 | HO.PM.IMPN ---
Subjective Subjective Date of Service: 10/06/25 Interval History: Patient seen and examined at bedside this morning, mentioned that her right upper quadrant pain has improved, awaiting for MRCP later today. No concerns voiced by the nursing staff. Review of Systems Review of Systems: Yes all other systems are reviewed and are negative Physical Exam Exam: Exam: General: AxOx3, No acute distress Head: AT/NC ENT: Moist mucous membranes Neck: supple CVS; RRR, S1 S2 normal Lungs: Clear bilateral breath sounds, no wheezes or crackles Abd: Soft, non distended, mild tenderness in epigastric area Ext: No edema and no calf tenderness MSK: moving all 4 limbs Skin: No cyanosis or edema Psych: Cooperative with exam Neurology: no focal deficit Vital Signs: Vital Signs: Last Vital Signs Temp 97.0 F 10/06/25 08:00 Pulse 101 H 10/06/25 08:00 Resp 18 10/06/25 08:00 BP 126/73 10/06/25 08:00 Pulse Ox 95 10/06/25 08:00 O2 Del Method Room Air 10/06/25 08:00 BMI result Body Mass Index 19.6 Objective Data Active Medications Acetaminophen (Acetaminophen 325 Mg Tablet) 650 mg PO Q6H PRN PRN Reason: Pain, Mild 1-3,fever,headache Calcium Carbonate (Calcium Carbonate 750 Mg Tab.Chew) 750 mg PO Q4H PRN PRN Reason: Heartburn Docusate Sodium (Docusate Sodium 100 Mg Capsule) 100 mg PO BID [facility] Last Admin: 10/05/25 23:17 Dose: Not Given Documented By: FRANCOIS Non-Admin Reason: Patient Refused Enoxaparin Sodium (Enoxaparin Sodium 40 Mg/0.4 Ml Syringe) 40 mg SUBCUT Q24H [facility] Last Admin: 10/05/25 22:03 Dose: 40 mg Documented By: FRANCOIS Hydromorphone HCl (Hydromorphone Hcl 1 Mg/Ml Syringe) 0.5 mg IVPUSH Q4H PRN; Protocol PRN Reason: Breakthrough Pain Lactated Ringer's (Lr) 1,000 mls @ 100 mls/hr IVCONT .Q10H [facility] Last Infusion: 10/06/25 07:42 Dose: 100 mls/hr Documented By: KEELY Magnesium Hydroxide (Milk Of Magnesia 30 Ml Oral.Susp) 30 ml PO DAILY PRN PRN Reason: Constipation Melatonin (Melatonin 3 Mg Tablet) 6 mg PO BEDTIME PRN PRN Reason: Insomnia Senna (Sennosides 8.6 Mg Tablet) 17.2 mg PO BEDTIME [facility] Last Admin: 10/05/25 23:17 Dose: Not Given Documented By: FRANCOIS Non-Admin Reason: Patient Refused Sodium Chloride (0.9 % Sodium Chloride Flush 3 Ml Syringe) 3 ml IVFLUSH QSHIFT [facility] Last Admin: 10/06/25 07:42 Dose: Not Given Documented By: KEELY Non-Admin Reason: IV Running Labs 10/05/25 11:52 10/06/25 03:44 Labs: Laboratory Results - last 24 hr 10/05/25 10/05/25 10/05/25 11:52 16:20 16:21 MCV 88.7 MCH 28.8 MCHC 32.5 RDW 14.9 Plt Count 228 MPV 10.4 Immature Gran % (Auto) 0.3 Neut % (Auto) 63.2 Lymph % (Auto) 20.9 Mellette % (Auto) 10.1 Eos % (Auto) 4.7 H Baso % (Auto) 0.8 Lymph # (Auto) 1.3 Mellette # (Auto) 0.7 Eos # (Auto) 0.3 Baso # (Auto) 0.1 Abs Immat Gran (auto) 0.02 Absolute Neuts (auto) 4.1 Absolute Nucleated RBC 0.000 Nucleated RBC % (auto) 0.0 PT 12.7 11.7 INR 1.0 1.0 Anion Gap 14 Estim Creat Clear Calc 30.8 Estimated GFR 37 Random Glucose 99 Lactic Acid 1.4 Calcium 11.3 H Magnesium 2.4 Total Bilirubin 5.5 H AST 299 H ALT 825 H Alkaline Phosphatase 308 H Total Protein 7.4 Albumin 4.3 Acetaminophen Hepatitis A IgM Ab Hep Bs Antigen Hep Bs Antibody Hep B Core Total Ab Hepatitis C Ab (EIA) 10/05/25 10/06/25 18:04 03:44 MCV MCH MCHC RDW Plt Count MPV Immature Gran % (Auto) Neut % (Auto) Lymph % (Auto) Mellette % (Auto) Eos % (Auto) Baso % (Auto) Lymph # (Auto) Mellette # (Auto) Eos # (Auto) Baso # (Auto) Abs Immat Gran (auto) Absolute Neuts (auto) Absolute Nucleated RBC Nucleated RBC % (auto) PT INR Anion Gap 16 Estim Creat Clear Calc 36.6 Estimated GFR 45 Random Glucose 96 Lactic Acid Calcium 10.6 H D Magnesium Total Bilirubin 5.1 H AST 228 H ALT 647 H Alkaline Phosphatase 285 H Total Protein 6.9 Albumin 3.7 Acetaminophen < 3 Hepatitis A IgM Ab Nonreactive Hep Bs Antigen Negative Hep Bs Antibody NONREACTIVE Hep B Core Total Ab Nonreactive Hepatitis C Ab (EIA) Nonreactive Assessment and Plan (1) Choledocholithiasis: Status: Acute Plan 80-year-old female with a past medical history of hypertension, hyperlipidemia, history of a probe placement; presented to the hospital with a chief complaint of right upper quadrant abdominal pain. Admitted for following Choledocholithiasis Transaminitis: Trend liver enzymes GI consulted MRCP pending for today Patient is afebrile, no leukocytosis-will hold off antibiotics for now. HTN/HLD: Resume home medications DVT prophylaxis: Lovenox Code status: Full code Total time managing care of this patient today: 35 minutes. Quality Stroke Does the patient have a stroke diagnosis?: No VTE Prior VTE?: No VTE Risk Level:: Medical - moderate - high VTE Device Contraindication: Treatment Not Indicated VTE Drug Contraindication: N/A - Med Ordered
--- NOTE | 2025-10-06 10:38 | PM.GICN ---
History of Present Illness Data of Consult Service Date: 10/06/25 Requesting physician: Ryland Angel Primary Care Provider: Gisselle Mixon MD [facility] Reason for consult: CBD stone This is a 80 y.o F with PMH of hyperparathyroidism, biliary colic who presented to the hospital for nausea and dark urine and was found to have jaundice and cholelithiasis. Gastroenterology consulted for CBD stone. Pt reports that she was seen in [facility] earlier this year for R sided abd pain and was told she has gallstones. She was seen by gen surg at [facility] thereafter and sx at that time were not consistent with symptomatic cholelithiasis. Now since Sunday she has had increased nausea without overt abd pain and noticed darkening of her urine which prompted ER visit. Vitals stable without any fevers. Labs without leukocytosis. Initial Chem-7 with MOUNIKA that has now improved. Elevated LFTs with obstructive pattern. TBili 5.5. US abd yest without any CBD stone or mahi dil but MRCP this afternoon confirms distal CBD stone. Pt seen at bedside with son and present as well. No acute GI complaints at the time of assessment. Of note- pt has never had a colo. MRI abd also shows subcentimeter panc cysts without any communication with PD noted on this MRI. Also has LEFT adrenal mass measuring 2.6 cm. Review of Systems Review of Systems: Yes all other systems are reviewed and are negative [facility] Past Medical History Medical History Right flank pain Hyperparathyroidism Family History Family History Mother Diabetes Father Lung cancer Surgical History Surgical History History of surgery History of left hip replacement History of right knee joint replacement History of total right hip replacement Social History Social History Household Members: Spouse Housing: House Do you presently have visiting nurse or other home services: No Alcohol intake: never Patient Tobacco Use Status: Never used Tobacco Smoked in Last 30 Days: No Use of substances other than those prescribed or required for medical reasons: No Currently Displaying Signs/Symptoms of Drug Intoxication Withdrawal: No Have you been hit, kicked, punched, or otherwise hurt by someone within the past year? If so, by whom?: No Do you feel safe in your current relationship?: Yes Is there a partner from a previous relationship who is making you feel unsafe now?: No Are you made to feel afraid or neglected: No Advance Directives: Yes Advance Directives Information Provided: Yes Advance Directives on File: No Advance Directives Date on File: 10/06/25 Do you have a plan to hurt others: No Plan Recently lost weight without trying: No Nutrition Risks: Poor intake 0-25% >4 days Patient : No : No Poor oral hygiene: No service: No Meds Allergies Allergy/AdvReac Type Severity Reaction Status Date / Time shellfish derived Allergy Unknown Swelling Verified 10/05/25 11:16 Active Medications: Current Medications Acetaminophen (Acetaminophen 325 Mg Tablet) 650 mg PO Q6H PRN PRN Reason: Pain, Mild 1-3,fever,headache Calcium Carbonate (Calcium Carbonate 750 Mg Tab.Chew) 750 mg PO Q4H PRN PRN Reason: Heartburn Docusate Sodium (Docusate Sodium 100 Mg Capsule) 100 mg PO BID [facility] Last Admin: 10/06/25 10:22 Dose: Not Given Enoxaparin Sodium (Enoxaparin Sodium 40 Mg/0.4 Ml Syringe) 40 mg SUBCUT Q24H [facility] Last Admin: 10/05/25 22:03 Dose: 40 mg Hydromorphone HCl (Hydromorphone Hcl 1 Mg/Ml Syringe) 0.5 mg IVPUSH Q4H PRN; Protocol PRN Reason: Breakthrough Pain Lactated Ringer's (Lr) 1,000 mls @ 100 mls/hr IVCONT .Q10H [facility] Last Infusion: 10/06/25 07:42 Dose: 100 mls/hr Magnesium Hydroxide (Milk Of Magnesia 30 Ml Oral.Susp) 30 ml PO DAILY PRN PRN Reason: Constipation Melatonin (Melatonin 3 Mg Tablet) 6 mg PO BEDTIME PRN PRN Reason: Insomnia Senna (Sennosides 8.6 Mg Tablet) 17.2 mg PO BEDTIME [facility] Last Admin: 10/05/25 23:17 Dose: Not Given Sodium Chloride (0.9 % Sodium Chloride Flush 3 Ml Syringe) 3 ml IVFLUSH QSHIFT [facility] Last Admin: 10/06/25 07:42 Dose: Not Given Home Medications ?Medication ?Instructions ?Recorded ?Confirmed ?Last Taken ?Type aspirin 81 mg tablet 81 mg PO DAILY 04/01/25 10/05/25 10/04/25 History atorvastatin 40 mg tablet 40 mg PO DAILY 10/05/25 10/05/25 10/04/25 History clonidine HCl 0.1 mg tablet 0.1 mg PO BID 10/05/25 10/05/25 10/04/25 History latanoprost 0.005 % eye drops 1 drp ophthalmic (eye) BEDTIME 10/05/25 10/05/25 10/04/25 History lisinopril 20 mg tablet 20 mg PO BEDTIME 10/05/25 10/05/25 10/04/25 History lisinopril 20 1 tab PO DAILY 10/05/25 10/05/25 10/04/25 History mg-hydrochlorothiazide 12.5 mg tablet metoprolol succinate 50 mg 50 mg PO DAILY 10/05/25 10/05/25 10/04/25 History tablet,extended release 24 hr Physical Exam Exam: Exam: Appears younger than stated age NAD Mild icterus abd soft, nontender, nondistended, no guarding, no murphys mild IFRAH Vital Signs: Vital Signs: Last Vital Signs Temp 97.0 F 10/06/25 08:00 Pulse 101 H 10/06/25 08:00 Resp 18 10/06/25 08:00 BP 126/73 10/06/25 08:00 Pulse Ox 95 10/06/25 08:00 O2 Del Method Room Air 10/06/25 08:00 BMI result Body Mass Index 34.6 Results Labs 10/05/25 11:52 10/06/25 03:44 Labs: Short CBC 10/05/25 Range/Units 11:52 WBC 6.4 (4.8-10.8) X10*3/uL Hgb 13.7 (12.0-16.0) g/dl Hct 42.2 (37.0-47.0) % Plt Count 228 (160-400) X10*3/uL BMP 10/05/25 10/06/25 11:52 03:44 Sodium 140 141 Potassium 3.9 4.5 Chloride 105 110 H Carbon Dioxide 25 20 L BUN 31 H 27 H Creatinine 1.39 1.17 Calcium 11.3 H 10.6 H D Liver Function 10/05/25 10/06/25 Range/Units 11:52 03:44 Total Bilirubin 5.5 H 5.1 H (0.0-1.0) mg/dL AST 299 H 228 H (5-31) U/L ALT 825 H 647 H (0-31) U/L Alkaline Phosphatase 308 H 285 H (39-117) U/L Albumin 4.3 3.7 (3.5-5.0) g/dL Assessment and Plan (1) Choledocholithiasis: Status: Acute (2) Cholelithiases: Status: Acute (3) Pancreatic cyst: Status: Acute Plan Pt with nausea and jaundice x 2 days found to have cholelithiasis and choledocholithiasis. Also with incidental finding of panc cysts. Case briefly relayed to the good Dr Martin who will be scheduling her for ERCP tentatively tmrw. Plan: - Can have clears today - NPO after MN for ERCP tmrw for biliary drainage and clearance - Low threshold to start Abx for any fever, mental status change etc to cover for ascending cholangitis - NON-urgent surgery consult for discussion re interval cholecystectomy - Consider OP panc protocol MRI - Pt should also follow up with endocrinology for adrenal mass Thank you for allowing me to participate in her care. Please do not hesitate to reach out for any questions or concerns. Procedures Date of Service Date of Service: 10/06/25
[2025-10-06] MEDS: 0.9 % Sodium Chloride Flush 3 ML SYRINGE IVFLUSH (20:49)
[2025-10-06] MEDS: Latanoprost 0.005 % Ophth Sol 2.5 ML DROPS 1 DROP EYE-BOTH (21:15)
[2025-10-06 21:56] LABS: Appearance Urine Clear; Glucose Urine UA Negative (Negative); PH 5.5 (5.0-9.0); Specific Gravity - Urine 1.020 (1.005-1.025); UMIC TRIGGER UACC YES
[2025-10-06 22:03] LABS: UACC Culture Trigger YES
[2025-10-07] VITALS (13 sets, daily range): BP systolic 98–132; BP diastolic 58–72; PULSE 74–99; RESP 12–18; TEMP 36.1–36.8; O2SAT 90–99
[2025-10-07] MEDS: Lactated Ringers 1,000 ML 100 ML IVCONT ×2 (05:07→16:26)
[2025-10-07] MEDS: lisinopriL 20 MG, hydroCHLOROthiazide 12.5 MG PO (08:08)
[2025-10-07] MEDS: Metoprolol Succinate ER 50 MG TAB.ER.24H PO (08:11)
--- NOTE | 2025-10-07 08:35 | P.PNIM_ITS ---
Subjective Subjective Date of Service: 10/07/25 Interval History: Patient seen examined at bedside this morning, patient states that she is feeling better, plans on ERCP today. No concerns voiced by the nursing staff. Review of Systems Review of Systems: Yes all other systems are reviewed and are negative Physical Exam 2 Exam: Exam: General: AxOx3, No acute distress Head: AT/NC ENT: Moist mucous membranes Neck: supple CVS; RRR, S1 S2 normal Lungs: Clear bilateral breath sounds, no wheezes or crackles Abd: Soft, non distended, non tender Ext: No edema and no calf tenderness MSK: moving all 4 limbs Skin: No cyanosis or edema Psych: Cooperative with exam Neurology: no focal deficit Vital Signs: Vital Signs: Last Vital Signs Temp 97.8 F 10/07/25 07:35 Pulse 99 10/07/25 07:35 Resp 18 10/07/25 07:35 BP 129/68 10/07/25 07:35 Pulse Ox 92 10/07/25 07:35 O2 Del Method Room Air 10/07/25 07:35 BMI result Body Mass Index 34.6 Objective Data Active Medications Acetaminophen (Acetaminophen 325 Mg Tablet) 650 mg PO Q6H PRN PRN Reason: Pain, Mild 1-3,fever,headache Aspirin (Aspirin Enteric Coated 81 Mg Tablet.) 81 mg PO DAILY [facility] Atorvastatin Calcium (Atorvastatin Calcium 40 Mg Tablet) 40 mg PO DAILY [facility] Last Admin: 10/07/25 08:11 Dose: 40 mg Documented By: MALCOLM Calcium Carbonate (Calcium Carbonate 750 Mg Tab.Chew) 750 mg PO Q4H PRN PRN Reason: Heartburn Clonidine HCl (Clonidine Hcl 0.1 Mg Tablet) 0.1 mg PO BID [facility]; Protocol Last Admin: 10/07/25 08:11 Dose: 0.1 mg Documented By: MALCOLM Lisinopril 20 mg/ (Hydrochlorothiazide 12.5 mg) 0 mg PO DAILY [facility] Last Admin: 10/07/25 08:08 Dose: 1 tablet Documented By: MALCOLM Docusate Sodium (Docusate Sodium 100 Mg Capsule) 100 mg PO BID [facility] Last Admin: 10/07/25 08:11 Dose: 100 mg Documented By: MALCOLM Enoxaparin Sodium (Enoxaparin Sodium 40 Mg/0.4 Ml Syringe) 40 mg SUBCUT Q24H [facility] On Hold: 10/06/25 20:27 Last Admin: 10/06/25 20:28 Dose: Not Given Documented By: CARMINE Non-Admin Reason: Physician Held Med Hydromorphone HCl (Hydromorphone Hcl 1 Mg/Ml Syringe) 0.5 mg IVPUSH Q4H PRN; Protocol PRN Reason: Breakthrough Pain Lactated Ringer's (Lr) 1,000 mls @ 100 mls/hr IVCONT .Q10H [facility] Last Admin: 10/07/25 05:07 Dose: 100 mls/hr Documented By: CARMINE Latanoprost (Latanoprost 0.005 % Ophth Nena 2.5 Ml Drops) 1 drop EYE-BOTH BEDTIME [facility] Last Admin: 10/06/25 21:15 Dose: 1 drop Documented By: CARMINE Lisinopril (Lisinopril 20 Mg Tablet) 20 mg PO BEDTIME [facility]; Protocol Last Admin: 10/06/25 20:48 Dose: 20 mg Documented By: CARMINE Magnesium Hydroxide (Milk Of Magnesia 30 Ml Oral.Susp) 30 ml PO DAILY PRN PRN Reason: Constipation Melatonin (Melatonin 3 Mg Tablet) 6 mg PO BEDTIME PRN PRN Reason: Insomnia Metoprolol Succinate (Metoprolol Succinate Er 50 Mg Tab.Er.24h) 50 mg PO DAILY [facility]; Protocol Last Admin: 10/07/25 08:11 Dose: 50 mg Documented By: MALCOML Senna (Sennosides 8.6 Mg Tablet) 17.2 mg PO BEDTIME [facility] Last Admin: 10/06/25 20:48 Dose: 17.2 mg Documented By: CARMINE Sodium Chloride (0.9 % Sodium Chloride Flush 3 Ml Syringe) 3 ml IVFLUSH QSHIFT [facility] Last Admin: 10/07/25 08:03 Dose: Not Given Documented By: MALCOLM Non-Admin Reason: IV Running Vitamin D (Cholecalciferol (Vitamin D3) 25 Mcg Tablet) 50 mcg PO DAILY [facility] Last Admin: 10/07/25 08:11 Dose: 50 mcg Documented By: MALCOLM Labs 10/05/25 11:52 10/06/25 03:44 Labs: Laboratory Results - last 24 hr 10/06/25 20:54 Urine Color Dark Yellow Urine Appearance Clear Urine pH 5.5 Ur Specific [place] 1.020 Urine Protein Negative Urine Glucose (UA) Negative Urine Ketones Negative Urine Blood Negative Urine Nitrite Negative Ur Leukocyte Esterase Small (1+) H Urine RBC 0-2 Urine WBC 0-5 Ur Squamous Epith Cells 0-2 Urine Bacteria None Seen Hyaline Casts 0-2 Microbiology Microbiology Results: Microbiology 10/05/25 17:04 Blood Culture - Preliminary Blood - Venous No growth after 24 hours. 10/05/25 16:21 Blood Culture - Preliminary Blood - Venous No growth after 24 hours. Assessment and Plan (1) Choledocholithiasis: Status: Acute Plan 80-year-old female with a past medical history of hypertension, hyperlipidemia, who presented to the hospital with a chief complaint of right upper quadrant abdominal pain. Admitted for following Choledocholithiasis Transaminitis: Trend liver enzymes GI consulted ERCP today Patient is afebrile, no leukocytosis-will hold off antibiotics for now. HTN/HLD: Resume home medications DVT prophylaxis: Lovenox Code status: Full code Total time managing care of this patient today: 35 minutes. Quality Stroke Does the patient have a stroke diagnosis?: No VTE Prior VTE?: No VTE Risk Level:: Medical - moderate - high VTE Device Contraindication: Treatment Not Indicated VTE Drug Contraindication: N/A - Med Ordered
--- NOTE | 2025-10-07 09:46 | HO.ANESPROP2 ---
Documented by User: Sierra Bush NP 10/07/25 09:47 HPI - Anesthesia Eval Consult details Narrative: 80 yr old female for ERCP s/p colonoscopy at [facility] with TIVA 04/2025 ?CVA many years ago, on ASA PMFSH Active Problems Active Problems: All Active Problems (Updated 10/06/25 @ 16:41 by Tanesha Kim MD) Pancreatic cyst (Acute) Cholelithiases (Acute) Choledocholithiasis (Acute) Cholecystitis (Acute) Gall bladder pain (Acute) Right flank pain (Acute) Hyperparathyroidism (Acute) Past Medical History Medical History (Updated 10/07/25 @ 12:59 by Shelby Bowman RN) Stroke Hypertension Right flank pain Hyperparathyroidism Family History Family History Mother Diabetes Father Lung cancer Surgical History Surgical History History of surgery History of left hip replacement History of right knee joint replacement History of total right hip replacement Social History Social History Household Members: Spouse Housing: House Do you presently have visiting nurse or other home services: No Alcohol intake: never Patient Tobacco Use Status: Never used Tobacco Smoked in Last 30 Days: No Use of substances other than those prescribed or required for medical reasons: No Currently Displaying Signs/Symptoms of Drug Intoxication Withdrawal: No Have you been hit, kicked, punched, or otherwise hurt by someone within the past year? If so, by whom?: No Do you feel safe in your current relationship?: Yes Is there a partner from a previous relationship who is making you feel unsafe now?: No Are you made to feel afraid or neglected: No Are you DNR?: No Advance Directives: Yes Advance Directives Information Provided: Yes Advance Directives on File: No Advance Directives Date on File: 10/06/25 Do you have a plan to hurt others: No Plan Recently lost weight without trying: No Nutrition Risks: Poor intake 0-25% >4 days Patient : No : No Poor oral hygiene: No service: No Meds Allergies Allergy/AdvReac Type Severity Reaction Status Date / Time shellfish derived Allergy Unknown Swelling Verified 10/05/25 11:16 Active Medications: Current Medications Acetaminophen (Acetaminophen 325 Mg Tablet) 650 mg PO Q6H PRN PRN Reason: Pain, Mild 1-3,fever,headache Aspirin (Aspirin Enteric Coated 81 Mg Tablet.Dr) 81 mg PO DAILY [facility] On Hold: 10/07/25 09:00 Atorvastatin Calcium (Atorvastatin Calcium 40 Mg Tablet) 40 mg PO DAILY [facility] Last Admin: 10/07/25 08:11 Dose: 40 mg Calcium Carbonate (Calcium Carbonate 750 Mg Tab.Chew) 750 mg PO Q4H PRN PRN Reason: Heartburn Clonidine HCl (Clonidine Hcl 0.1 Mg Tablet) 0.1 mg PO BID [facility]; Protocol Last Admin: 10/07/25 08:11 Dose: 0.1 mg Lisinopril 20 mg/ (Hydrochlorothiazide 12.5 mg) 0 mg PO DAILY [facility] Last Admin: 10/07/25 08:08 Dose: 1 tablet Docusate Sodium (Docusate Sodium 100 Mg Capsule) 100 mg PO BID [facility] Last Admin: 10/07/25 08:11 Dose: 100 mg Enoxaparin Sodium (Enoxaparin Sodium 40 Mg/0.4 Ml Syringe) 40 mg SUBCUT Q24H [facility] On Hold: 10/06/25 20:27 Last Admin: 10/06/25 20:28 Dose: Not Given Hydromorphone HCl (Hydromorphone Hcl 1 Mg/Ml Syringe) 0.5 mg IVPUSH Q4H PRN; Protocol PRN Reason: Breakthrough Pain Lactated Ringer's (Lr) 1,000 mls @ 100 mls/hr IVCONT .Q10H [facility] Last Admin: 10/07/25 05:07 Dose: 100 mls/hr Latanoprost (Latanoprost 0.005 % Ophth Nena 2.5 Ml Drops) 1 drop EYE-BOTH BEDTIME [facility] Last Admin: 10/06/25 21:15 Dose: 1 drop Lisinopril (Lisinopril 20 Mg Tablet) 20 mg PO BEDTIME [facility]; Protocol Last Admin: 10/06/25 20:48 Dose: 20 mg Magnesium Hydroxide (Milk Of Magnesia 30 Ml Oral.Susp) 30 ml PO DAILY PRN PRN Reason: Constipation Melatonin (Melatonin 3 Mg Tablet) 6 mg PO BEDTIME PRN PRN Reason: Insomnia Metoprolol Succinate (Metoprolol Succinate Er 50 Mg Tab.Er.24h) 50 mg PO DAILY [facility]; Protocol Last Admin: 12/17/25 08:11 Dose: 50 mg Senna (Sennosides 8.6 Mg Tablet) 17.2 mg PO BEDTIME [facility] Last Admin: 10/06/25 20:48 Dose: 17.2 mg Sodium Chloride (0.9 % Sodium Chloride Flush 3 Ml Syringe) 3 ml IVFLUSH QSHIFT [facility] Last Admin: 10/07/25 08:03 Dose: Not Given Vitamin D (Cholecalciferol (Vitamin D3) 25 Mcg Tablet) 50 mcg PO DAILY [facility] Last Admin: 10/07/25 08:11 Dose: 50 mcg Home Medications ?Medication ?Instructions ?Recorded ?Confirmed ?Last Taken ?Type aspirin 81 mg tablet 81 mg PO DAILY 04/01/25 10/05/25 10/04/25 History atorvastatin 40 mg tablet 40 mg PO DAILY 10/05/25 10/05/25 10/04/25 History clonidine HCl 0.1 mg tablet 0.1 mg PO BID 10/05/25 10/05/25 10/04/25 History latanoprost 0.005 % eye drops 1 drp ophthalmic (eye) BEDTIME 10/05/25 10/05/25 10/04/25 History lisinopril 20 mg tablet 20 mg PO BEDTIME 10/05/25 10/05/25 10/04/25 History lisinopril 20 1 tab PO DAILY 10/05/25 10/05/25 10/04/25 History mg-hydrochlorothiazide 12.5 mg tablet metoprolol succinate 50 mg 50 mg PO DAILY 10/05/25 10/05/25 10/04/25 History tablet,extended release 24 hr Exam Height,Weight and Vital Signs: Height 5 ft 8 in Weight 103.1 kg Last Vital Signs Temp 97.8 F 10/07/25 07:35 Pulse 99 10/07/25 07:35 Resp 18 10/07/25 07:35 BP 129/68 10/07/25 07:35 Pulse Ox 92 10/07/25 07:35 O2 Del Method Room Air 10/07/25 07:35 Pertinent Lab Results Pertinent Lab Results: Laboratory Tests 10/05/25 10/05/25 10/05/25 11:52 16:20 16:21 WBC 6.4 RBC 4.76 Hgb 13.7 Hct 42.2 MCV 88.7 MCH 28.8 MCHC 32.5 RDW 14.9 Plt Count 228 MPV 10.4 Immature Gran % (Auto) 0.3 Neut % (Auto) 63.2 Lymph % (Auto) 20.9 Banks % (Auto) 10.1 Eos % (Auto) 4.7 H Baso % (Auto) 0.8 Lymph # (Auto) 1.3 Banks # (Auto) 0.7 Eos # (Auto) 0.3 Baso # (Auto) 0.1 Abs Immat Gran (auto) 0.02 Absolute Neuts (auto) 4.1 Absolute Nucleated RBC 0.000 Nucleated RBC % (auto) 0.0 PT 12.7 11.7 INR 1.0 1.0 Sodium 140 Potassium 3.9 Chloride 105 Carbon Dioxide 25 Anion Gap 14 BUN 31 H Creatinine 1.39 Estim Creat Clear Calc 30.8 Estimated GFR 37 Random Glucose 99 Lactic Acid 1.4 Calcium 11.3 H Magnesium 2.4 Total Bilirubin 5.5 H AST 299 H ALT 825 H Alkaline Phosphatase 308 H Total Protein 7.4 Albumin 4.3 Urine Color Urine Appearance Urine pH Ur Specific [place] Urine Protein Urine Glucose (UA) Urine Ketones Urine Blood Urine Nitrite Ur Leukocyte Esterase Urine RBC Urine WBC Ur Squamous Epith Cells Urine Bacteria Hyaline Casts Acetaminophen Hepatitis A IgM Ab Hep Bs Antigen Hep Bs Antibody Hep B Core Total Ab Hepatitis C Ab (EIA) 10/05/25 10/06/25 10/06/25 18:04 03:44 20:54 WBC RBC Hgb Hct MCV MCH MCHC RDW Plt Count MPV Immature Gran % (Auto) Neut % (Auto) Lymph % (Auto) Banks % (Auto) Eos % (Auto) Baso % (Auto) Lymph # (Auto) Banks # (Auto) Eos # (Auto) Baso # (Auto) Abs Immat Gran (auto) Absolute Neuts (auto) Absolute Nucleated RBC Nucleated RBC % (auto) PT INR Sodium 141 Potassium 4.5 Chloride 110 H Carbon Dioxide 20 L Anion Gap 16 BUN 27 H Creatinine 1.17 Estim Creat Clear Calc 36.6 Estimated GFR 45 Random Glucose 96 Lactic Acid Calcium 10.6 H D Magnesium Total Bilirubin 5.1 H AST 228 H ALT 647 H Alkaline Phosphatase 285 H Total Protein 6.9 Albumin 3.7 Urine Color Dark Yellow Urine Appearance Clear Urine pH 5.5 Ur Specific [place] 1.020 Urine Protein Negative Urine Glucose (UA) Negative Urine Ketones Negative Urine Blood Negative Urine Nitrite Negative Ur Leukocyte Esterase Small (1+) H Urine RBC 0-2 Urine WBC 0-5 Ur Squamous Epith Cells 0-2 Urine Bacteria None Seen Hyaline Casts 0-2 Acetaminophen < 3 Hepatitis A IgM Ab Nonreactive Hep Bs Antigen Negative Hep Bs Antibody NONREACTIVE Hep B Core Total Ab Nonreactive Hepatitis C Ab (EIA) Nonreactive Documented by User: Latoya Berrios MD 10/07/25 13:24 [facility] Past Medical History Medical History (Updated 10/07/25 @ 12:59 by Shelby Bowman RN) Stroke Hypertension Right flank pain Hyperparathyroidism Family History Family History Mother Diabetes Father Lung cancer Family history of problems with anesthesia: No Surgical History Surgical History History of surgery History of left hip replacement History of right knee joint replacement History of total right hip replacement History of Problems with Anesthesia: No Social History Social History Household Members: Spouse Housing: House Do you presently have visiting nurse or other home services: No Alcohol intake: never Patient Tobacco Use Status: Never used Tobacco Smoked in Last 30 Days: No Use of substances other than those prescribed or required for medical reasons: No Currently Displaying Signs/Symptoms of Drug Intoxication Withdrawal: No Have you been hit, kicked, punched, or otherwise hurt by someone within the past year? If so, by whom?: No Do you feel safe in your current relationship?: Yes Is there a partner from a previous relationship who is making you feel unsafe now?: No Are you made to feel afraid or neglected: No Are you DNR?: No Advance Directives: Yes Advance Directives Information Provided: Yes Advance Directives on File: No Advance Directives Date on File: 10/06/25 Do you have a plan to hurt others: No Plan Recently lost weight without trying: No Nutrition Risks: Poor intake 0-25% >4 days Patient : No : No Poor oral hygiene: No service: No Meds Allergies Allergy/AdvReac Type Severity Reaction Status Date / Time shellfish derived Allergy Unknown Swelling Verified 10/05/25 11:16 Home Medications ?Medication ?Instructions ?Recorded ?Confirmed ?Last Taken ?Type aspirin 81 mg tablet 81 mg PO DAILY 04/01/25 10/05/25 10/04/25 History atorvastatin 40 mg tablet 40 mg PO DAILY 10/05/25 10/05/25 10/04/25 History clonidine HCl 0.1 mg tablet 0.1 mg PO BID 10/05/25 10/05/25 10/04/25 History latanoprost 0.005 % eye drops 1 drp ophthalmic (eye) BEDTIME 10/05/25 10/05/25 10/04/25 History lisinopril 20 mg tablet 20 mg PO BEDTIME 10/05/25 10/05/25 10/04/25 History lisinopril 20 1 tab PO DAILY 10/05/25 10/05/25 10/04/25 History mg-hydrochlorothiazide 12.5 mg tablet metoprolol succinate 50 mg 50 mg PO DAILY 10/05/25 10/05/25 10/04/25 History tablet,extended release 24 hr Exam Airway Mallampati Class: II TM Dist: >3cm Neck ROM: Full Denture: Upper Heart: rrr Lungs: cta Assessment and Plan Assessment Anesthesia Assessment: Anesthesia Plan Discussed and Chart Reviewed Final Anesthetic Review Family History of Problems with Anesthesia: No History of Problems with Anesthesia: No NPO: Yes ASA Class: III Final Preanesthetic Review: No Changes in Pt Med Stat, Meds/Allgs Chart Reviewed and Consent Obtained/Reviewed Patient Risk: Intermediate Procedure Risk: Intermediate Anesthetic Plan Anesthetic Plan: GA Disposition: Standard PACU
--- NOTE | 2025-10-07 13:46 | MHC.SHP ---
Pre-Procedural Eval Section A - 24 Hr Update-Section A only Date of Service: 10/07/25 The patient is an INPATIENT: Yes Changes since office visit: No Cold of Flu in the past 2 weeks, No New Medical Problems, No Changes in Medication and No Patient answered all questions The patient has been examined within 24 hours of the surgical procedure. The History & Physical has been completed within 30 days and I have reviewed it.: Yes Section B - Complete if H&P > 30 days Chief Complaint: blood in urine Allergies: Allergies Allergy/AdvReac Type Severity Reaction Status Date / Time shellfish derived Allergy Unknown Swelling Verified 10/05/25 11:16 Plan I have reviewed the history and physical and performed a pertinent physical examination on my patient. No changes have occurred unless specified. Time Spent With Patient Time: Total time managing care of this patient today ____ minutes.
--- NOTE | 2025-10-07 15:34 | P.BOP_ITS ---
Brief Operative Note Date of Service: 10/07/25 Pre-op diagnosis: cbd stone Procedure: ERCP Surgeon: Willy Martin MD Anesthesia: GETA Was an Accounting Machine Operator used for this Procedure?: No Estimated blood loss (mL): 2 Pathology: none sent Condition: stable Disposition: PACU
--- NOTE | 2025-10-07 15:36 | PM.EVENT ---
Event Note Date of Service: 10/07/25 Event Note: ERCP dictated multiple stone fragments removed after sphincterotomy at least 1 filling defect could not be removed stent placed Rec; liquids tonight advance diet as tolerated. repeat ERCP in6-8 weeks for removal of stent and and residual stone Time Spent With Patient Time: Total time managing care of this patient today ____ minutes.
[2025-10-07] MEDS: Latanoprost 0.005 % Ophth Sol 2.5 ML DROPS 1 DROP EYE-BOTH (20:25)
[2025-10-08] VITALS (7 sets, daily range): BP systolic 117–129; BP diastolic 60–62; PULSE 75–95; RESP 18–20; TEMP 36.4–36.5; O2SAT 93–95
--- NOTE | 2025-10-08 00:57 | OP_ITS ---
DATE OF SERVICE: 10/07/2025 SURGEON: Willy Martin MD INDICATIONS: Common bile duct stone. PREOPERATIVE DIAGNOSIS: POSTOPERATIVE DIAGNOSIS: PROCEDURE PERFORMED: ESTIMATED BLOOD LOSS: COMPLICATIONS: ANESTHESIA: General anesthesia. ASSISTANTS: SPECIMENS: PROCEDURES PERFORMED: Endoscopic retrograde cholangiopancreatography with sphincterotomy, stone fragment extraction, and placement of biliary stent. DESCRIPTION OF PROCEDURE: A history and physical was performed. The risks and benefits of the procedure were explained to the patient. An informed consent was obtained. The patient was placed in the prone position with a wedge under the right shoulder. The Olympus therapeutic duodenoscope was introduced into the esophagus, stomach, and duodenum. Examination was performed. The scope was removed. She tolerated the procedure well and was taken to recovery area in stable condition. FINDINGS: Endoscopy: Limited examination of the esophagus, stomach, and duodenum was within normal limits. The common bile duct was accessed by passing a guidewire over sphincterotome into the common bile duct. Cholangiography showed at least 1 filling defect consistent with the findings on MRCP. A sphincterotomy was performed and balloon extraction sweeps were done with removal of stone fragments. There appeared to be at least one stone, which could not be completely removed despite extending the sphincterotomy. Because of this, a 10-[place] 7 cm Cotton-Pratt biliary stent was placed in good position with good drainage of the biliary tree. No pancreatogram was attempted or obtained. IMPRESSION: Common bile duct stones. RECOMMENDATIONS: 1. Monitor clinically overnight. 2. She will be referred for stent removal and repeat ERCP in [place], in 6-8 weeks, where L is available. MD JOHN Braxton/LUCI / [id number]
[2025-10-08 06:08] LABS: Hematocrit 37.6 % (37.0-47.0); Hemoglobin 12.1 g/dl (12.0-16.0); Mean Corpuscular HGB Conc 32.2 g/dl (31.0-35.0); Mean Corpuscular Hemoglobin 28.7 pg (27.0-33.0); Mean Corpuscular Volume 89.3 fL (80.0-98.0); NRBC Abs Auto 0.000 X10*3/uL (0.0-0.012); NRBC Pct Auto 0.0 /100WBC (0.0-0.2); Platelet Count 206 X10*3/uL (160-400); Red Blood Count 4.21 X10*6/uL (4.20-5.50); White Blood Count 7.8 X10*3/uL (4.8-10.8)
[2025-10-08 06:28] LABS: Alanine Aminotransferase 465 U/L (0-31); Albumin Level 3.4 g/dL (3.5-5.0); Alkaline Phosphatase 273 U/L (39-117); Aspartate Amino Transferase 176 U/L (5-31); Total Protein 6.2 g/dL (6.5-8.0)
[2025-10-08] MEDS: 0.9 % Sodium Chloride Flush 3 ML SYRINGE IVFLUSH (08:57)
[2025-10-08] MEDS: Metoprolol Succinate ER 50 MG TAB.ER.24H PO (09:06)
--- NOTE | 2025-10-08 09:52 | PM.GIPN ---
Subjective Subjective Date of Service: 10/08/25 Interval History: feels well no pain tolerating diet Critical Care Time (minutes): 0 Physical Exam Vital Signs: Vital Signs: Last Vital Signs Temp 97.5 F 10/08/25 07:18 Pulse 80 10/08/25 09:06 Resp 18 10/08/25 07:18 BP 128/60 10/08/25 09:16 Pulse Ox 93 10/08/25 07:18 O2 Del Method Room Air 10/08/25 07:18 O2 Flow Rate 3 10/07/25 15:50 BMI result Body Mass Index 34.6 GI: Other: abdomen is soft and nontender Objective Data Labs 10/08/25 05:08 10/06/25 03:44 Labs: Laboratory Results - last 24 hr 10/08/25 05:08 WBC 7.8 RBC 4.21 Hgb 12.1 Hct 37.6 MCV 89.3 MCH 28.7 MCHC 32.2 RDW 15.2 Plt Count 206 MPV 10.7 Absolute Nucleated RBC 0.000 Nucleated RBC % (auto) 0.0 Total Bilirubin 2.3 H Direct Bilirubin 1.8 H AST 176 H ALT 465 H Alkaline Phosphatase 273 H Total Protein 6.2 L Albumin 3.4 L Microbiology Microbiology Results: Microbiology 10/05/25 17:04 Blood - Venous Blood Culture - Preliminary No growth after 48 hours. 10/05/25 16:21 Blood - Venous Blood Culture - Preliminary No growth after 48 hours. 10/06/25 22:03 Urine clean catch Urine Culture - Preliminary No growth to date. Procedures Date of Service Date of Service: 10/08/25 Progress Note: A&P Assessment and plan (1) Choledocholithiasis: Status: Acute Assessment and Plan: doing well lfts better I will arrange repeat ERCP with stent removal and removal of retained stone at [facility] as outpt in 6-8 weeks. She is agreeable. No asa x 1 week. Time Spent With Patient Time: Total time managing care of this patient today ____ minutes. Quality Stroke Does the patient have a stroke diagnosis?: No VTE Prior VTE?: No VTE Risk Level:: Medical - moderate - high VTE Device Contraindication: Treatment Not Indicated VTE Drug Contraindication: N/A - Med Ordered
--- NOTE | 2025-10-08 10:43 | HO.POSTANES ---
Post Anesthesia Evaluation Post Anesthesia Evaluation Date of Service: 10/08/25 Vital Signs: Vital Signs Temp Pulse Resp BP Pulse Ox O2 Del Method 10/08/25 09:16 128/60 10/08/25 09:16 128/60 10/08/25 09:06 80 128/60 10/08/25 09:05 128/60 10/08/25 07:18 97.5 F 80 18 129/60 93 Room Air 10/08/25 03:11 97.6 F 75 18 117/62 93 Room Air 10/07/25 23:49 97.1 F 74 16 104/59 L 92 Room Air Anesthesia: General Endotracheal-GETA Mental Status: Awake Pain Control: Satisfactory Nausea/Vomiting: None Hydration: Adequate Anesthesia-Related Issues: No Anes. Related Issues
--- NOTE | 2025-10-08 13:21 | PM.DS ---
DS: Providers Provider Date of admission: 10/05/25 19:32 Date of discharge: 10/08/25 Primary care physician: Gisselle Mixon MD Consults: 10/05/25 19:32 Consult to Gastroenterology Routine Consulting Provider: [facility] [place] G[facility]ology [facility] Reason for consultation: Choledocholithiasis DS: Diagnosis Discharge Diagnosis (1) Choledocholithiasis: Status: Acute DS: Summary Hospital Course Hospital Course: 80-year-old female with a past medical history of hypertension, hyperlipidemia, who presented to the hospital with a chief complaint of right upper quadrant abdominal pain. Found to have choledocholithiasis with ERCP done yesterday with stent placement and unable to remove a stone. Seen by GI suggested following up as an outpatient 6-8 weeks for stent removal and removal of retained stone. Patient did not have any aspirin for 1 week, patient at this time tolerating food and ambulating. Choledocholithiasis, s/p ERCP on 10/07 Trend liver enzymes ERCP on 10/07, with stent placement and removal of stone, suggestive of following up in outpatient for 6-8 weeks for stent removal and we will have retained stone with GI HTN/HLD: Resume home medications, Aspirin on hold for 1 week Time Attestation Discharge Coordination Time (in mins): 35 minutes Quality: Safe Use of Opioids Does Pt have an Active Cancer Diagnosis on the Problem List?: No Quality: Stroke Does the patient have a stroke diagnosis?: No Physical Exam Exam: Exam: General: AxOx3, No acute distress Head: AT/NC ENT: Moist mucous membranes Neck: supple CVS; RRR, S1 S2 normal Lungs: Clear bilateral breath sounds, no wheezes or crackles Abd: Soft, non distended, non tender Ext: No edema and no calf tenderness MSK: moving all 4 limbs Skin: No cyanosis or edema Psych: Cooperative with exam Neurology: no focal deficit Vital Signs: Vital Signs: Last Vital Signs Temp 97.7 F 10/08/25 11:47 Pulse 95 10/08/25 11:47 Resp 20 10/08/25 11:47 BP 123/61 10/08/25 11:47 Pulse Ox 95 10/08/25 11:47 O2 Del Method Room Air 10/08/25 11:47 O2 Flow Rate 3 10/07/25 15:50 BMI result Body Mass Index 34.6 DS: Data Data Completed and Pending Labs on day of discharge: Laboratory Results - last 24 hr 10/08/25 05:08 WBC 7.8 RBC 4.21 Hgb 12.1 Hct 37.6 MCV 89.3 MCH 28.7 MCHC 32.2 RDW 15.2 Plt Count 206 MPV 10.7 Absolute Nucleated RBC 0.000 Nucleated RBC % (auto) 0.0 Total Bilirubin 2.3 H Direct Bilirubin 1.8 H AST 176 H ALT 465 H Alkaline Phosphatase 273 H Total Protein 6.2 L Albumin 3.4 L Preliminary micro results at discharge 10/05/25 17:04 Blood Culture - Preliminary Blood - Venous No growth after 48 hours. 10/05/25 16:21 Blood Culture - Preliminary Blood - Venous No growth after 48 hours. Discharge Plan Discharge Anticipated Discharge Date/Time: 10/08/25 13:18 Patient Disposition: Home, Self-Care Discharge Diagnosis: Choledocolithiasis Referrals: Gisselle Mixon MD [Primary Care Provider, Internal Medicine] - 1 Week Tanesha Kim MD [Physician, Gastroenterology] - 6 Weeks Discharge Medications: Continued latanoprost 0.005 % drops 1 drp ophthalmic (eye) BEDTIME atorvastatin 40 mg tablet 40 mg PO DAILY clonidine HCl 0.1 mg tablet 0.1 mg PO BID lisinopril-hydrochlorothiazide 20-12.5 mg tablet 1 tab PO DAILY metoprolol succinate 50 mg tablet extended release 24 hr 50 mg PO DAILY lisinopril 20 mg tablet 20 mg PO BEDTIME cholecalciferol (vitamin D3) 50 mcg (2,000 unit) capsule 50 mcg PO DAILY Qty: 30 5RF Held aspirin 81 mg tablet 81 mg PO DAILY Hold Instructions: Resume on 10/15/25. Discharge Orders: Discharge Order (Routine); Ordered 10/08/25 Ordered By: Corky Land Activity on Discharge: As tolerated Stand Alone Forms: Patient Portal Discharge page Print Language: Azeri Care Plan Goals: ERCP done, follow up with GI in 6 weeks Health Concerns: Choledocolithiasis Plan of Treatment: sstatus post ERCP, follow up with GI in 6 weeks Assessment: 80-year-old female with a past medical history of hypertension, hyperlipidemia, who presented to the hospital with a chief complaint of right upper quadrant abdominal pain. Found to have choledocholithiasis with ERCP done yesterday with stent placement and unable to remove a stone. Seen by GI suggested following up as an outpatient 6-8 weeks for stent removal and removal of retained stone. Patient did not have any aspirin for 1 week, patient at this time tolerating food and ambulating. Patient Instructions: Gallstones (DC), Low Fat Diet (DC), Endoscopic Biliary Stent Placement (DC)
--- NOTE | 2025-10-08 13:22 | MHC.CM.PN ---
Patient has been medically cleared for dc to home today, self care.
== END 2025-10-08 15:16 | disposition home or self-care (01) | DRG 445 ==
LOC: HO.ED 15:37 → HO.EDOVER 19:48 → HO.IMC 10-06 07:08
PROVIDERS: Internal Medicine Gastroenterology; Physician Assistant Medical; Admitting Provider Hospitalist; Emergency Provider Emergency Medicine; PCP Internal Medicine; Visit Provider Student in an Organized Health Care Education/Training Program
PROC: 0FC98ZZ Extirpation of Matter from Common Bile Duct, Via Natural or Artificial Opening Endoscopic (ICD-10-PCS; CPT 43260; principal; 2025-10-07 13:50)
DX: K80.50 Calculus of bile duct without cholangitis or cholecystitis without obstruction (principal); N17.9 Acute kidney failure, unspecified; I10 Essential (primary) hypertension; E78.5 Hyperlipidemia, unspecified; Z79.82 Long term (current) use of aspirin; Z79.899 Other long term (current) drug therapy
CPT/HCPCS: 36415; 74177; 74181; 76705; 80053; 80076; 80143; 81001; 83605; 83735; 85025; 85027; 85610; 86704; 86706; 86709; 86803; 87040; 87086; 87340; 97162; 97165; 99285; C2617; J0696; J1610; J1650; J7120; Q9967

== ENCOUNTER → 2025-10-05 15:55 | Outpatient (BNV) | payer MEDICARE, SELFPAY | PROVIDERS: Emergency Provider Emergency Medicine; PCP Internal Medicine; Visit Provider Radiology Diagnostic Radiology | DX: K83.8 Other specified diseases of biliary tract (principal); K86.9 Disease of pancreas, unspecified; Z96.643 Presence of artificial hip joint, bilateral; K80.20 Calculus of gallbladder without cholecystitis without obstruction | CPT/HCPCS: 74177; 76705 ==

== ENCOUNTER 2025-10-05 19:32 | Outpatient (BNV) | payer MEDICARE, SELFPAY | END 2025-10-06 14:35 | PROVIDERS: Admitting Provider Hospitalist; Emergency Provider Emergency Medicine; PCP Internal Medicine; Visit Provider Radiology Diagnostic Radiology | DX: K80.20 Calculus of gallbladder without cholecystitis without obstruction (principal); K80.50 Calculus of bile duct without cholangitis or cholecystitis without obstruction; K86.2 Cyst of pancreas; E27.9 Disorder of adrenal gland, unspecified | CPT/HCPCS: 74181 ==

== ENCOUNTER → 2025-10-05 19:32 | Outpatient (BNV) | payer MEDICARE, SELFPAY | PROVIDERS: Admitting Provider Hospitalist; Emergency Provider Emergency Medicine; PCP Internal Medicine; Visit Provider Student in an Organized Health Care Education/Training Program | DX: K80.50 Calculus of bile duct without cholangitis or cholecystitis without obstruction (principal) | CPT/HCPCS: 99222; 99232; 99239 ==

== ENCOUNTER → 2025-10-05 19:32 | Outpatient (BNV) | payer MEDICARE, SELFPAY | PROVIDERS: Admitting Provider Hospitalist; Emergency Provider Emergency Medicine; PCP Internal Medicine; Visit Provider Internal Medicine | DX: K80.50 Calculus of bile duct without cholangitis or cholecystitis without obstruction (principal); K80.20 Calculus of gallbladder without cholecystitis without obstruction; K86.2 Cyst of pancreas | CPT/HCPCS: 99222 ==